=== PATIENT | female | born 1940 | race Caucasian/White ===

== ENCOUNTER 2019-09-15 08:11 | Outpatient (CLI) | payer MEDICARE, OTHER, SELFPAY ==
[2019-09-15 09:03] LABS: Hemoglobin A1C 6.1 % (<5.7)
[2019-09-15 09:08] LABS: Blood Urea Nitrogen 25 mg/dL (7-17); Calcium 9.2 mg/dL (8.4-10.2); Carbon Dioxide 22 mmol/L (22-30); Chloride 105 mmol/L (98-107); Estimated Glomerular Filt Rate > 60; Glucose 114 mg/dL (65-105); Potassium 4.4 mmol/L (3.4-5.0); Sodium 135 mmol/L (137-145)
== END 2019-09-15 08:12 | disposition home or self-care (01) ==
PROVIDERS: PCP Family Medicine; Visit Provider Physician Assistant
DX: E11.9 Type 2 diabetes mellitus without complications (principal)
CPT/HCPCS: 36415; 80048; 83036

== ENCOUNTER 2019-12-21 08:18 | Outpatient (CLI) | payer MEDICARE, OTHER, SELFPAY ==
--- NOTE | ~2019-12-21 | MR_ITS ---
EXAMINATION: MR brain IAC wo/w con EXAM DATE: 12/21/2019 10:38 INDICATION: Dizziness, off balance. Struck her head 5 years ago. TECHNIQUE: Multi-sequential, multiplanar MR images of the brain, brainstem, internal auditory canals were obtained without contrast. Whole brain sagittal T1, axial diffusion, gradient echo (T2*), T1, T 2, FLAIR sequences obtained. High resolution coronal 3-D FIESTA, coronal T1 FSE, axial T1 FSPGR of t he internal auditory canals. Patient was then injected with 16 cc Multihance contrast intravenously. Postcontrast axial and coronal T1 weighted whole brain, axial and coronal high resolution T1 IAC seq uences obtained. There is no prior study for comparison. FINDINGS: No evidence of mastoid or middle ear opacification. The 7th/8th cranial nerve complexes a re symmetric, normal in course and caliber. No cerebellopontine angle masses. Posterior fossa unrem arkable. There is minimal microangiopathy. There is no acute intraparenchymal hemorrhage. No evidence of intr aparenchymal brain mass lesion. No evidence of acute infarction. There is no mass effect or midline shift. The ventricles are normal in size. There are no extra-axial collections. There are no acut e calvarial fractures. Patient has had bilateral ocular lens surgery. Soft tissue is unremarkable. The visualized sinuses and mastoid air cells are well aerated. There are no areas of abnormal enhan cement on the postcontrast images. IMPRESSION: Minimal microangiopathy. Otherwise unremarkable exam. Reviewed, dictated and finalized at location A.
[2019-12-21 09:12] LABS: Hemoglobin A1C 5.6 % (<5.7)
[2019-12-21 09:19] LABS: Alanine Aminotransferase 21 U/L (4-35); Albumin Level 4.7 g/dL (3.5-5.1); Alkaline Phosphatase 66 U/L (38-126); Anion Gap 8 mmol/L (8-16); Aspartate Amino Transferase 28 U/L (14-36); Bilirubin,Total 0.7 mg/dL (0.2-1.3); Blood Urea Nitrogen 20 mg/dL (7-17); Calcium 9.3 mg/dL (8.4-10.2); Carbon Dioxide 26 mmol/L (22-30); Chloride 104 mmol/L (98-107); Estimated Glomerular Filt Rate > 60; Glucose 122 mg/dL (65-105); Potassium 4.3 mmol/L (3.4-5.0); Sodium 138 mmol/L (137-145)
[2019-12-21 09:44] LABS: Estimated Glomerular Filt Rate 60
== END 2019-12-21 08:19 | disposition home or self-care (01) ==
PROVIDERS: Physician Assistant; PCP Family Medicine; Visit Provider Physician Assistant
DX: R42 Dizziness and giddiness (principal); E11.9 Type 2 diabetes mellitus without complications
CPT/HCPCS: 36415; 70553; 80053; 83036; A9577

== ENCOUNTER 2019-12-27 08:14 | Emergency (ER) | payer MEDICARE, OTHER, SELFPAY ==
[2019-12-27 08:27] VITALS: BP 170/87; PULSE 91; RESP 16; TEMP 36.3; O2SAT 98
--- NOTE | 2019-12-27 08:27 | ED.GENADULT ---
HPI - General Adult General Chief complaint: Skin/Abscess/Foreign Body Stated complaint: itchy Time Seen by Provider: 12/27/19 08:29 Source: patient and RN notes reviewed Mode of arrival: ambulatory Limitations: no limitations History of Present Illness HPI narrative: 79-year-old female presents with complaints of diffused left side itching without a visible rash for the past 3 weeks. Decreased bathing per week, Benadryl 25-50mg T.I.D. last on 12/26/19 @22:30, Hydrocortisone cream, and Triamcinolone cream without relief. Denies new changes in personal hygiene products or laundry detergent. No new foods or medications. No swelling, burning, bleeding, or drainage. Denies fever, chills, headaches, weakness, fatigue, myalgia, facial swelling, or tongue swelling. Denies chest pain or dyspnea. The patient reports she have not been diagnosed with COVID-19. The patient reports she is not waiting for the results of a COVID-19 lab test. The patient reports she do not have fever, chills, weakness, or fatigue. The patient reports she do not have a new or worsening cough. The patient reports she do not have any rhinorrhea, congestion, sore throat, loss of taste, nausea, vomiting, abdominal pain, and diarrhea. Tolerating po intake well. Denies recent traveling. Denies concerns for COVID-19 or exposures been home with limited outdoor exposure except for essential household needs, work, and return home. At this time, patient is not suspected of having COVID-19. Some parts of this dictation were generated by voice recognition software and may contain typographical and/or grammatical inaccuracies. Related Data Home Medications Medication Instructions Recorded Confirmed simvastatin 20 mg tablet 20 mg PO DAILY 03/16/19 12/27/19 Allergies Allergy/AdvReac Type Severity Reaction Status Date / Time adhesive Allergy Unknown SKIN Verified 12/27/19 08:23 IRRITATION Sulfa (Sulfonamide Allergy Unknown Skin Verified 12/27/19 08:23 Antibiotics) Reaction Review of Systems Review of Systems: Narrative: CONSTITUTIONAL: Denies fever, chills, sweats. EYES: Denies visual changes, redness, discharge. ENT: Denies rhinorrhea, congestion, sore throat, otalgia. CARDIOVASCULAR: Denies chest pain, palpitations, edema. RESPIRATORY: Denies dyspnea, wheezing, cough. GASTROINTESTINAL: Denies abdominal pain, nausea, vomiting, diarrhea. GENITOURINARY: Denies dysuria, hematuria, abnormal discharge. SKIN: Complains of diffused left side itching without a visible rash. Denies drainage. MUSCULOSKELETAL: Denies acute back pain, joint pain, or myalgia. NEUROLOGIC: Denies numbness or focal weakness. PSYCHIATRIC: Denies anxiety or depression. All other systems reviewed & are unremarkable except as noted in HPI and below. FORMERLY [facility], [facility] Past Medical History Medical History (Updated 12/27/19 @ 09:03 by ALICIA Campso) Anxiety Cataracts, bilateral Duodenal ulcer Mixed hyperlipidemia Obesity, unspecified Post-menopausal Rectal polyp Skin cancer (melanoma) Type 2 diabetes mellitus without complication, without long-term current use of insulin Vertigo Surgical History Surgical History (Updated 12/27/19 @ 09:03 by ALIICA Campos) History of bladder repair surgery History of cholecystectomy History of lumpectomy RT breast History of shoulder surgery RT History of thyroidectomy History of total knee arthroplasty LT History of tubal ligation Family History Family History Mother Family history of Alzheimer's disease Father Family history of primary malignant neoplasm of liver Family history of hepatitis, Onset Age: 94 Social History Social History (Updated 12/27/19 @ 09:04 by ALICIA Campos) Smoking status: Former smoker Tobacco type: cigarettes Second hand tobacco smoke exposure: No Smoking end date: 04/06/84 Alcohol intake: current Subst
[2019-12-27 08:46] VITALS: BP 164/78
== END 2019-12-27 08:46 | disposition home or self-care (01) ==
PROVIDERS: Emergency Provider Nurse Practitioner Family; PCP Family Medicine
DX: L30.9 Dermatitis, unspecified (principal); Z87.891 Personal history of nicotine dependence; F41.9 Anxiety disorder, unspecified; E78.2 Mixed hyperlipidemia; E11.9 Type 2 diabetes mellitus without complications; Z85.820 Personal history of malignant melanoma of skin; E66.9 Obesity, unspecified; Z68.30 Body mass index [BMI] 30.0-30.9, adult; H26.9 Unspecified cataract; Z96.652 Presence of left artificial knee joint
CPT/HCPCS: 99213; G0463

== ENCOUNTER 2020-01-27 15:22 | Outpatient (CLI) | payer MEDICARE, OTHER, SELFPAY ==
[2020-01-27 15:49] LABS: Basophils Absolute Auto 0.1 K/mm3 (0.0-0.1); Basophils Percent Auto 0.7 % (0.2-1.2); Eosinophils Absolute Auto 0.2 K/mm3 (0-0.3); Eosinophils Percent Auto 2.3 % (0-4.4); Hematocrit 42.9 % (37.0-47.0); Hemoglobin 14.1 g/dL (12.0-15.0); Immature Granulocyte Absolute 0.06 K/mm3 (0.00-0.031); Immature Granulocyte Percent A 0.6 % (0-0.5); Lymphocytes Absolute Auto 3.49 K/mm3 (0.9-3.2); Lymphocytes Percent Auto 35.5 % (18.3-44.2); Mean Corpuscular HGB Conc 32.9 g/dl (32-36); Mean Corpuscular Hemoglobin 32.3 pg (26-34); Mean Corpuscular Volume 98.2 fl (80-100); Mean Platelet Volume 9.5 fl (7.4-10.4); Monocytes Absolute Auto 0.6 K/mm3 (0.1-0.6); Monocytes Percent Auto 5.6 % (2.6-8.5); Neutrophils Absolute Auto 5.4 K/mm3 (1.3-6.7); Neutrophils Percent Auto 55.3 % (45.5-73.1); Platelet Count Result 239 k/mm3 (150-375); Red Blood Count 4.37 M/mm3 (4.2-5.4); Red Cell Distribution Width 13.8 % (11.5-14.5); White Blood Count 9.8 K/mm3 (4.5-10.0)
[2020-01-27 16:01] LABS: Alanine Aminotransferase 18 U/L (4-35); Albumin Level 4.3 g/dL (3.5-5.1); Alkaline Phosphatase 62 U/L (38-126); Anion Gap 9 mmol/L (8-16); Aspartate Amino Transferase 30 U/L (14-36); Bilirubin,Total 0.5 mg/dL (0.2-1.3); Blood Urea Nitrogen 23 mg/dL (7-17); Calcium 9.3 mg/dL (8.4-10.2); Carbon Dioxide 26 mmol/L (22-30); Chloride 105 mmol/L (98-107); Estimated Glomerular Filt Rate > 60; Glucose 138 mg/dL (65-105); Potassium 4.5 mmol/L (3.4-5.0); Sodium 140 mmol/L (137-145)
== END 2020-01-27 15:23 | disposition home or self-care (01) ==
LOC: ANHLAB 15:25
PROVIDERS: PCP Family Medicine; Visit Provider Family Medicine
DX: L29.9 Pruritus, unspecified (principal)
CPT/HCPCS: 36415; 80053; 85025

== ENCOUNTER 2020-05-16 09:50 | Outpatient (CLI) | payer MEDICARE, OTHER, SELFPAY ==
[2020-05-16 10:45] LABS: Basophils Absolute Auto 0.1 K/mm3 (0.0-0.1); Basophils Percent Auto 0.6 % (0.2-1.2); Eosinophils Absolute Auto 0.2 K/mm3 (0-0.3); Eosinophils Percent Auto 2.3 % (0-4.4); Hematocrit 39.2 % (37.0-47.0); Hemoglobin 13.1 g/dL (12.0-15.0); Immature Granulocyte Absolute 0.03 K/mm3 (0.00-0.031); Immature Granulocyte Percent A 0.3 % (0-0.5); Lymphocytes Percent Auto 48.3 % (18.3-44.2); Mean Corpuscular HGB Conc 33.4 g/dl (32-36); Mean Corpuscular Volume 92.9 fl (80-100); Mean Platelet Volume 9.9 fl (7.4-10.4); Monocytes Absolute Auto 0.7 K/mm3 (0.1-0.6); Monocytes Percent Auto 6.6 % (2.6-8.5); Neutrophils Absolute Auto 4.3 K/mm3 (1.3-6.7); Neutrophils Percent Auto 41.9 % (45.5-73.1); Platelet Count Result 214 k/mm3 (150-375); Red Blood Count 4.22 M/mm3 (4.2-5.4); White Blood Count 10.1 K/mm3 (4.5-10.0)
[2020-05-16 10:46] LABS: Hemoglobin A1C 5.9 % (<5.7)
[2020-05-16 10:49] LABS: Alanine Aminotransferase 18 U/L (4-35); Albumin Level 4.4 g/dL (3.5-5.1); Alkaline Phosphatase 54 U/L (38-126); Anion Gap 5 mmol/L (8-16); Aspartate Amino Transferase 27 U/L (14-36); Bilirubin,Total 0.4 mg/dL (0.2-1.3); Blood Urea Nitrogen 21 mg/dL (7-17); Calcium 9.2 mg/dL (8.4-10.2); Carbon Dioxide 31 mmol/L (22-30); Chloride 106 mmol/L (98-107); Cholesterol 210 mg/dL (0-200); Estimated Glomerular Filt Rate > 60; Glucose 111 mg/dL (65-105); HDL Direct 63 mg/dL; Potassium 4.4 mmol/L (3.4-5.0); Sodium 142 mmol/L (137-145); Triglycerides 212 mg/dL (<150)
[2020-05-16 11:00] LABS: LDL Cholesterol Direct 93 mg/dL
[2020-05-16 11:09] LABS: Creatinine Urine 95.9 mg/dL
[2020-05-16 11:23] LABS: Microalbumin Urine Random < 6.0 mg/L (0-16.7)
[2020-05-16 11:24] LABS: MALB Creatinine Ratio < 6.3 mg/g (0-30); Vitamin D 25 Hydroxy 18.4 ng/mL
== END 2020-05-16 09:51 | disposition home or self-care (01) ==
PROVIDERS: PCP Internal Medicine; Visit Provider Internal Medicine
DX: E11.9 Type 2 diabetes mellitus without complications (principal); E55.9 Vitamin D deficiency, unspecified; E78.2 Mixed hyperlipidemia; Z79.899 Other long term (current) drug therapy; E66.09 Other obesity due to excess calories; Z68.34 Body mass index [BMI] 34.0-34.9, adult
CPT/HCPCS: 36415; 80053; 80061; 82043; 82306; 83036; 84443; 85025

== ENCOUNTER 2020-05-31 16:49 | Outpatient (CLI) | payer MEDICARE, OTHER, SELFPAY ==
--- NOTE | ~2020-05-31 | MM_ITS ---
EXAMINATION: MM screening marie BI w romulo HISTORY: Screening mammogram TECHNIQUE: Craniocaudal and mediolateral oblique 3-D tomosynthesis images were obtained and synthetic 2-D images were generated. CAD analysis was submitted and interpreted. COMPARISON: 08/18/2016, 10/14/2102, 05/22/2010 BREAST PARENCHYMAL COMPOSITION: The breasts are heterogeneously dense, which may obscure small masses . FINDINGS: Scattered benign-appearing calcifications are present. There is no evidence of suspicious m ass, calcification, or architectural distortion to suggest malignancy in either breast. There has bee n no suspicious interval change. IMPRESSION: 1. No mammographic evidence of malignancy. 2. Recommend routine screening mammography in one year. BI-RADS Category 2: Benign finding(s). Reviewed, dictated and finalized at location A. ENTRY
== END 2020-05-31 16:50 | disposition home or self-care (01) ==
LOC: ANHIMG 16:50
PROVIDERS: PCP Internal Medicine; Visit Provider Internal Medicine
DX: Z12.31 Encounter for screening mammogram for malignant neoplasm of breast (principal)
CPT/HCPCS: 77063; 77067

== ENCOUNTER → 2020-06-11 11:21 | Outpatient (CLI) | payer MEDICARE, OTHER, SELFPAY ==
[2020-06-12 22:47] LABS: SARS-CoV-2 RNA PCR Negative
== END ==
PROVIDERS: PCP Internal Medicine; Visit Provider Internal Medicine
DX: R68.89 Other general symptoms and signs (principal); Z20.822 Contact with and (suspected) exposure to COVID-19
CPT/HCPCS: C9803; U0003; U0005

== ENCOUNTER → 2020-07-07 05:24 | Outpatient (CLI) | payer MEDICARE, OTHER, SELFPAY ==
[2020-07-07 19:34] LABS: SARS-CoV-2 RNA PCR Negative
== END ==
PROVIDERS: PCP Internal Medicine; Visit Provider Internal Medicine Gastroenterology
DX: Z01.812 Encounter for preprocedural laboratory examination (principal); Z20.822 Contact with and (suspected) exposure to COVID-19
CPT/HCPCS: C9803; U0003; U0005

== ENCOUNTER 2020-07-11 01:30 | Day surgery (SDC) | payer MEDICARE, OTHER, SELFPAY ==
[2020-07-04 10:01] VITALS: BMI 31.5
[2020-07-11 08:50] VITALS: BP 147/78; PULSE 100; RESP 20; TEMP 37.1; O2SAT 100
[2020-07-11] MEDS: LACTATED RINGERS 1,000 ML 150 ML IV CONT (09:05)
[2020-07-11 09:06] LABS: Glucose Point of Care 121 (65-105)
--- NOTE | 2020-07-11 09:27 | WPDANESEPPF ---
Anes - Initial Pre Proc Eval Procedure: Operation Date: 07/11/20 10:00 Proposed Procedures p Screening Colonoscopy - Robert Crisostomo MD Date/Time: 07/11/20 09:27 Surgeon: Robert Crisostomo MD Pre Op Diagnosis: Neoplasm Screening Patient Data Age: 80 Gender: F Height: 5 ft 3.5 in Weight: 82 kg Last Vital Signs Temp 98.7 F 07/11/20 08:50 Pulse 100 07/11/20 08:50 Resp 20 07/11/20 08:50 BP 147/78 H 07/11/20 08:50 Pulse Ox 100 07/11/20 08:50 Allergies Allergy/AdvReac Type Severity Reaction Status Date / Time adhesive Allergy Mild SKIN Verified 07/04/20 10:02 IRRITATION Sulfa (Sulfonamide Allergy Mild Skin Verified 07/04/20 10:02 Antibiotics) Reaction Home Medications Medication Instructions Recorded Confirmed Type cholecalciferol (vitamin D3) 1,250 50,000 unit PO WEEKLY #14 cap 05/17/20 07/04/20 Rx mcg (50,000 unit) capsule omeprazole 20 mg capsule,delayed 20 mg PO DAILY #90 cap 05/23/20 07/04/20 Rx release lisinopril 10 mg tablet 10 mg PO DAILY #90 tablet 06/01/20 07/04/20 Rx metformin 500 mg tablet,extended 1,000 mg PO DAILY #180 tablet 06/01/20 07/04/20 Rx release 24 hr sodium,potassium,mag sulfates 17.5 See Rx Instructions PO .COMPLEX 06/07/20 Rx gram-3.13 gram-1.6 gram oral soln #354 ml acetaminophen [Tylenol Arthritis 650 mg PO DAILY PRN 07/04/20 07/04/20 History Pain] cetirizine 10 mg PO DAILY 07/04/20 07/04/20 History rosuvastatin [Crestor] 5 mg PO HS 07/04/20 07/04/20 History Laboratory Tests 07/11/20 09:03 POC Capillary Glucose 121 mg/dl H mg/dl (65-105) Patient hx anesthesia problems: none Family hx anesthesia problems: none PMFSH Past Medical History Medical History Acute arthritis Anxiety Cataracts, bilateral Duodenal ulcer High cholesterol Mixed hyperlipidemia Obesity, unspecified Painful joint Post-menopausal Rectal polyp Skin cancer (melanoma) Type 2 diabetes mellitus without complication, without long-term current use of insulin Vertigo Surgical History Surgical History History of bladder repair surgery History of cholecystectomy History of lumpectomy RT breast History of shoulder surgery RT History of thyroidectomy History of total knee arthroplasty LT History of tubal ligation Family History Family History Mother Family history of Alzheimer's disease Father Family history of primary malignant neoplasm of liver Family history of hepatitis, Onset Age: 94 Social History Social History Smoking status: Former smoker Tobacco type: cigarettes Second hand tobacco smoke exposure: No Smoking end date: 04/06/84 Alcohol intake: current Substance use: never Substance use type: does not use Living arrangements: with family Gender identity (if verbalized by the patient): Female Spiritual care concerns: No Anes - Eval Final PreProcedure Day of Procedure 07/11/20 09:27 Patient weight: overweight Heart: regular rate and rhythm Lungs: clear to auscultation Airway: Mallampati scale class II Neurological: alert and oriented Last oral intake: >/= 8 hours ASA classification: III Emergent: no Anesthetic plan: proceed Anesthesia type and monitoring: general GIVS and standard monitoring Informed Consent: The patient's anesthetic plan and its attendant risks and benefits were discussed with the patient/family/POA. Questions were solicited and answers provided to the satisfaction of the patient/family/POA.
--- NOTE | 2020-07-11 09:52 | PM.HPGS ---
History of Present Illness History of Present Illness Consent: Risks, benefits, and alternatives have been discussed and questions answered. Patient agrees to proceed with procedure. Chief complaint: Neoplasm Screening Narrative: Jerica Walker is a 80 year old female with colon polyp in 2013 Review of Systems Constitutional: Constitutional: Denies headache(s) and Denies weakness Eyes: Eyes: Denies blurry vision ENT: Reports Normal hearing present, Denies headache(s) and Denies neck pain Cardiovascular: Cardiovascular: Denies chest pain and Denies dyspnea Respiratory: Respiratory: Denies dyspnea Gastrointestinal: Gastrointestinal: Reports no additional gastrointestinal complaints Genitourinary: Genitourinary: Denies dysuria Musculoskeletal: Musculoskeletal: Denies neck pain Integumentary/Breasts: Skin/Breast: Denies dry skin Neurologic: Reports Normal hearing present, Denies headache(s) and Denies weakness Psychiatric: Psychiatric: Denies anxiety Endocrine: Endocrine: Denies change in body appearance Hematologic/Lymphatic: Hematologic/Lymphatic: Denies easy bleeding Allergic/Immunologic: Allergic/Immunologic: Denies urticaria PMFSH Past Medical History Medical History Acute arthritis Anxiety Cataracts, bilateral Duodenal ulcer High cholesterol Mixed hyperlipidemia Obesity, unspecified Painful joint Post-menopausal Rectal polyp Skin cancer (melanoma) Type 2 diabetes mellitus without complication, without long-term current use of insulin Vertigo Surgical History Surgical History History of bladder repair surgery History of cholecystectomy History of lumpectomy RT breast History of shoulder surgery RT History of thyroidectomy History of total knee arthroplasty LT History of tubal ligation Family History Family History Mother Family history of Alzheimer's disease Father Family history of primary malignant neoplasm of liver Family history of hepatitis, Onset Age: 94 Social History Social History Smoking status: Former smoker Tobacco type: cigarettes Second hand tobacco smoke exposure: No Smoking end date: 04/06/84 Alcohol intake: current Substance use: never Substance use type: does not use Living arrangements: with family Gender identity (if verbalized by the patient): Female Spiritual care concerns: No Meds Home Medications and Allergies Home Medications Medication Instructions Recorded Confirmed Type cholecalciferol (vitamin D3) 1,250 50,000 unit PO WEEKLY #14 cap 05/17/20 07/04/20 Rx mcg (50,000 unit) capsule omeprazole 20 mg capsule,delayed 20 mg PO DAILY #90 cap 05/23/20 07/04/20 Rx release lisinopril 10 mg tablet 10 mg PO DAILY #90 tablet 06/01/20 07/04/20 Rx metformin 500 mg tablet,extended 1,000 mg PO DAILY #180 tablet 06/01/20 07/04/20 Rx release 24 hr sodium,potassium,mag sulfates 17.5 See Rx Instructions PO .COMPLEX 06/07/20 Rx gram-3.13 gram-1.6 gram oral soln #354 ml acetaminophen [Tylenol Arthritis 650 mg PO DAILY PRN 07/04/20 07/04/20 History Pain] cetirizine 10 mg PO DAILY 07/04/20 07/04/20 History rosuvastatin [Crestor] 5 mg PO HS 07/04/20 07/04/20 History Allergies Allergy/AdvReac Type Severity Reaction Status Date / Time adhesive Allergy Mild SKIN Verified 07/04/20 10:02 IRRITATION Sulfa (Sulfonamide Allergy Mild Skin Verified 07/04/20 10:02 Antibiotics) Reaction Vital Signs Vital Signs - 24 hr 07/11/20 08:50 Temperature 98.7 F Pulse Rate 100 Respiratory Rate 20 Blood Pressure 147/78 H Pulse Oximetry 100 Exam Const: General: comfortable and no acute distress HENMT: General nose exam: Normal nares present Eyes: General: appearance normal, both
[2020-07-11 10:17] VITALS: BP 151/70; PULSE 77; RESP 28; O2SAT 94
[2020-07-11 10:27] VITALS: BP 152/68; PULSE 74; RESP 21; O2SAT 95
[2020-07-11 10:37] VITALS: BP 153/71; PULSE 72; RESP 20; O2SAT 96
== END 2020-07-11 10:40 | disposition home or self-care (01) ==
PROVIDERS: PCP Internal Medicine; Visit Provider Internal Medicine Gastroenterology
PROC: 0DJD8ZZ Inspection of Lower Intestinal Tract, Via Natural or Artificial Opening Endoscopic (ICD-10-PCS; CPT 45378; principal; 2020-07-11 10:00)
DX: Z12.11 Encounter for screening for malignant neoplasm of colon (principal); K57.30 Diverticulosis of large intestine without perforation or abscess without bleeding; K64.8 Other hemorrhoids; Z86.010 Personal history of colon polyps; E11.9 Type 2 diabetes mellitus without complications; E78.2 Mixed hyperlipidemia; F41.9 Anxiety disorder, unspecified; E66.9 Obesity, unspecified; Z68.31 Body mass index [BMI] 31.0-31.9, adult; H26.9 Unspecified cataract; Z87.891 Personal history of nicotine dependence; Z79.84 Long term (current) use of oral hypoglycemic drugs
CPT/HCPCS: G0105; J2704; J7120

== ENCOUNTER 2020-08-30 08:07 | Outpatient (CLI) | payer MEDICARE, OTHER, SELFPAY ==
[2020-08-30 08:38] LABS: Alanine Aminotransferase 15 U/L (4-35); Albumin Level 4.4 g/dL (3.5-5.1); Alkaline Phosphatase 47 U/L (38-126); Anion Gap 9 mmol/L (8-16); Aspartate Amino Transferase 26 U/L (14-36); Bilirubin,Total 0.7 mg/dL (0.2-1.3); Blood Urea Nitrogen 16 mg/dL (7-17); Calcium 9.4 mg/dL (8.4-10.2); Carbon Dioxide 25 mmol/L (22-30); Chloride 108 mmol/L (98-107); Cholesterol 183 mg/dL (0-200); Estimated Glomerular Filt Rate > 60; Glucose 113 mg/dL (65-105); HDL Direct 74 mg/dL; Potassium 4.3 mmol/L (3.4-5.0); Sodium 142 mmol/L (137-145); Triglycerides 169 mg/dL (<150)
[2020-08-30 09:02] LABS: Creatinine Urine 108.5 mg/dL
[2020-08-30 09:07] LABS: MALB Creatinine Ratio 6.6 mg/g (0-30); Microalbumin Urine Random 7.2 mg/L (0-16.7)
[2020-08-30 11:20] LABS: LDL Cholesterol Direct 61 mg/dL
== END 2020-08-30 08:08 | disposition home or self-care (01) ==
PROVIDERS: PCP Internal Medicine; Visit Provider Internal Medicine
DX: E55.9 Vitamin D deficiency, unspecified (principal); E78.2 Mixed hyperlipidemia; I10 Essential (primary) hypertension; E11.9 Type 2 diabetes mellitus without complications
CPT/HCPCS: 36415; 80053; 80061; 82043; 83036

== ENCOUNTER 2020-09-21 11:55 | Outpatient (CLI) | payer MEDICARE, OTHER, SELFPAY ==
--- NOTE | 2020-09-21 12:43 | ECG_ITS ---
Measurements Intervals [place] Rate: 83 P: 52 KS: 147 QRS: -5 QRSD: 87 T: 53 QT: 351 QTc: 413 Interpretive Statements SINUS RHYTHM BORDERLINE R WAVE PROGRESSION, ANTERIOR LEADS BASELINE ARTIFACT- I, II, III, AVR, AVL, AVF BORDERLINE ECG Electronically Signed On 09-21-2020 13:20:18 CDT by Osbaldo Francisco D.O.
[2020-09-21 13:06] LABS: Hematocrit 39.8 % (37.0-47.0); Hemoglobin 13.4 g/dL (12.0-15.0); Mean Corpuscular HGB Conc 33.7 g/dl (32-36); Mean Corpuscular Hemoglobin 31.3 pg (26-34); Red Blood Count 4.28 M/mm3 (4.2-5.4); Red Cell Distribution Width 14.5 % (11.5-14.5); White Blood Count 13.8 K/mm3 (4.5-10.0)
[2020-09-21 13:07] LABS: Basophils Absolute Auto 0.1 K/mm3 (0.0-0.1); Basophils Percent Auto 0.4 % (0.2-1.2); Eosinophils Absolute Auto 0.2 K/mm3 (0-0.3); Eosinophils Percent Auto 1.7 % (0-4.4); Immature Granulocyte Absolute 0.06 K/mm3 (0.00-0.031); Immature Granulocyte Percent A 0.4 % (0-0.5); Lymphocytes Absolute Auto 6.58 K/mm3 (0.9-3.2); Lymphocytes Percent Auto 47.7 % (18.3-44.2); Mean Platelet Volume 9.2 fl (7.4-10.4); Monocytes Absolute Auto 0.8 K/mm3 (0.1-0.6); Monocytes Percent Auto 6.1 % (2.6-8.5); Neutrophils Percent Auto 43.7 % (45.5-73.1); Platelet Count Result 217 k/mm3 (150-375)
[2020-09-21 13:21] LABS: Urine Cotinine NEGATIVE
[2020-09-21 13:43] LABS: Atypical Lymphocytes Present; Platelet Estimate Adequate (Adequate)
== END 2020-09-21 11:56 | disposition home or self-care (01) ==
LOC: ANHSURGERY 11:57
PROVIDERS: PCP Internal Medicine; Visit Provider Orthopaedic Surgery
DX: M17.11 Unilateral primary osteoarthritis, right knee (principal); Z01.818 Encounter for other preprocedural examination; R94.31 Abnormal electrocardiogram [ECG] [EKG]
CPT/HCPCS: 80307; 85025; 87070; 93005

== ENCOUNTER 2020-10-04 12:20 | Outpatient (CLI) | payer MEDICARE, OTHER, SELFPAY ==
[2020-10-04 13:02] LABS: Basophils Absolute Auto 0.1 K/mm3 (0.0-0.1); Basophils Percent Auto 0.6 % (0.2-1.2); Eosinophils Absolute Auto 0.2 K/mm3 (0-0.3); Eosinophils Percent Auto 1.6 % (0-4.4); Hematocrit 39.6 % (37.0-47.0); Hemoglobin 13.1 g/dL (12.0-15.0); Immature Granulocyte Absolute 0.08 K/mm3 (0.00-0.031); Immature Granulocyte Percent A 0.6 % (0-0.5); Lymphocytes Absolute Auto 6.12 K/mm3 (0.9-3.2); Lymphocytes Percent Auto 45.9 % (18.3-44.2); Mean Corpuscular HGB Conc 33.1 g/dl (32-36); Mean Corpuscular Hemoglobin 30.8 pg (26-34); Mean Corpuscular Volume 93.2 fl (80-100); Mean Platelet Volume 9.2 fl (7.4-10.4); Monocytes Absolute Auto 0.9 K/mm3 (0.1-0.6); Neutrophils Absolute Auto 5.9 K/mm3 (1.3-6.7); Neutrophils Percent Auto 44.3 % (45.5-73.1); Platelet Count Result 223 k/mm3 (150-375); Red Blood Count 4.25 M/mm3 (4.2-5.4); Red Cell Distribution Width 14.6 % (11.5-14.5); White Blood Count 13.3 K/mm3 (4.5-10.0)
[2020-10-04 13:19] LABS: Alanine Aminotransferase 19 U/L (4-35); Albumin Level 4.7 g/dL (3.5-5.1); Alkaline Phosphatase 58 U/L (38-126); Anion Gap 8 mmol/L (8-16); Aspartate Amino Transferase 29 U/L (14-36); Bilirubin,Total 0.5 mg/dL (0.2-1.3); Blood Urea Nitrogen 19 mg/dL (7-17); Calcium 9.9 mg/dL (8.4-10.2); Carbon Dioxide 27 mmol/L (22-30); Chloride 106 mmol/L (98-107); Estimated Glomerular Filt Rate > 60; Glucose 109 mg/dL (65-105); Lactate Dehydrogenase 419 U/L (313-618); Potassium 4.7 mmol/L (3.4-5.0); Sodium 141 mmol/L (137-145)
== END 2020-10-04 12:21 | disposition home or self-care (01) ==
PROVIDERS: PCP Internal Medicine; Visit Provider Internal Medicine Medical Oncology
DX: D72.820 Lymphocytosis (symptomatic) (principal)
CPT/HCPCS: 36415; 80053; 83615; 85025

== ENCOUNTER 2020-10-09 09:30 | Outpatient (CLI) | payer MEDICARE, OTHER, SELFPAY | END 2020-10-09 09:31 | disposition home or self-care (01) | PROVIDERS: PCP Internal Medicine; Visit Provider Internal Medicine Medical Oncology | DX: D72.820 Lymphocytosis (symptomatic) (principal) | CPT/HCPCS: 88184; 88185 ==

== ENCOUNTER 2020-10-11 14:42 | Observation (INO) | payer MEDICARE, OTHER, SELFPAY ==
[2020-09-21 12:05] VITALS: BMI 34.0
[2020-09-21 12:41] VITALS: BP 165/74; PULSE 86; RESP 16; TEMP 37.2; O2SAT 96
--- NOTE | 2020-10-03 12:45 | PM.IMHP ---
H&P: HPI History of Present Illness Date/Time: 10/03/20 12:45 80-year-old female patient of who presents today for a right total knee arthroplasty. She had her left knee replaced in 2019 which is doing very well. Her right knee continues to be very bothersome for her on a daily basis. She had a cortisone injection in April of this year which gave her no real improvement. She is a very active healthy 80-year-old female. She still travels quite a bit and lives on her own. The pain in the knee is bothering her on a daily basis, at times it keeps her from activities as well. She has decided she would like to proceed with total knee arthroplasty rather continue nonsurgical treatment. <KRISTINA Mattson - Last Filed: 10/03/20 12:51> Chief Complaint: right knee DJD <KRISTINA Mattson - Last Filed: 10/03/20 12:51> Review of Systems Review of Systems: All systems reviewed & are unremarkable except as noted in HPI and below <KRISTINA Mattson - Last Filed: 10/03/20 12:51> [facility] Past Medical History Medical History: Medical History Acute arthritis Anxiety Cataracts, bilateral Colon polyp Duodenal ulcer High cholesterol Mixed hyperlipidemia Obesity, unspecified Painful joint Post-menopausal Rectal polyp Skin cancer (melanoma) Type 2 diabetes mellitus without complication, without long-term current use of insulin Vertigo <KRISTINA Mattson - Last Filed: 10/03/20 12:51> Surgical History Surgical History: Surgical History History of bladder repair surgery History of cholecystectomy History of lumpectomy RT breast History of shoulder surgery RT History of thyroidectomy History of total knee arthroplasty LT History of tubal ligation <KRISTINA Mattson - Last Filed: 10/03/20 12:51> Family History Family History: Family History Mother Family history of Alzheimer's disease Father Family history of primary malignant neoplasm of liver Family history of hepatitis, Onset Age: 94 <KRISTINA Mattson - Last Filed: 10/03/20 12:51> Social History Social History: Social History Years smoked: 12 Smoking status: Former smoker Tobacco type: cigarettes Second hand tobacco smoke exposure: No Smoking end date: 04/06/84 Additional smoking assessment comments: DENIES ANY FORM OF TOBACCO USE Alcohol intake: current Drinks per week: 2 Substance use: never Substance use type: does not use Living arrangements: with family Gender identity (if verbalized by the patient): Female Spiritual care concerns: No <KRISTINA Mattson - Last Filed: 10/03/20 12:51> Meds Home Medications and Allergies Home medications: Home Medications Medication Instructions Recorded Confirmed Type omeprazole 20 mg capsule,delayed 20 mg PO DAILY #90 cap 05/23/20 10/10/20 Rx release acetaminophen [Tylenol Arthritis 650 mg PO DAILY PRN 07/04/20 10/10/20 History Pain] amlodipine 5 mg tablet 5 mg PO DAILY #30 tablet 09/06/20 10/10/20 Rx rosuvastatin 10 mg tablet 10 mg PO QAM tablet 09/06/20 10/10/20 History cetirizine [Zyrtec] 10 mg PO DAILY PRN 09/21/20 10/10/20 History metformin 1,000 mg PO QPM 09/21/20 10/10/20 History <KRISTINA Mattson - Last Filed: 10/03/20 12:51> Allergies/Adverse reactions: Allergies Allergy/AdvReac Type Severity Reaction Status Date / Time adhesive Allergy Mild SKIN Verified 10/10/20 06:18 IRRITATION Sulfa (Sulfonamide Allergy Mild Skin Verified 10/10/20 06:18 Antibiotics) Reaction <KRISTINA Mattson - Last Filed: 10/03/20 12:51> Exam Narrative: Exam Narrative: 80-year-old female very alert pleasant. She is 5 ft 2 and 185 lb. Right knee has mild effusion. Range of motion is from 10-135 deg
--- NOTE | 2020-10-09 12:42 | WPDANESEPPF ---
Anes - Initial Pre Proc Eval Procedure: Operation Date: 10/10/20 07:30 Proposed Procedures p Right Total Knee Arthroplasty - Giovanny Basilio MD Date/Time: 10/09/20 12:42 Surgeon: Giovanny Basilio MD Pre Op Diagnosis: Right knee oa Patient Data Age: 80 Gender: F Height: 1.57 m Weight: 84.5 kg Last Vital Signs Temp 37.2 C 09/21/20 12:41 Pulse 86 09/21/20 12:41 Resp 16 09/21/20 12:41 BP 165/74 H 09/21/20 12:41 Pulse Ox 96 09/21/20 12:41 Allergies Allergy/AdvReac Type Severity Reaction Status Date / Time adhesive Allergy Mild SKIN Verified 10/10/20 06:18 IRRITATION Sulfa (Sulfonamide Allergy Mild Skin Verified 10/10/20 06:18 Antibiotics) Reaction Home Medications Medication Instructions Recorded Confirmed Type omeprazole 20 mg capsule,delayed 20 mg PO DAILY #90 cap 05/23/20 10/10/20 Rx release acetaminophen [Tylenol Arthritis 650 mg PO DAILY PRN 07/04/20 10/10/20 History Pain] amlodipine 5 mg tablet 5 mg PO DAILY #30 tablet 09/06/20 10/10/20 Rx rosuvastatin 10 mg tablet 10 mg PO QAM tablet 09/06/20 10/10/20 History cetirizine [Zyrtec] 10 mg PO DAILY PRN 09/21/20 10/10/20 History metformin 1,000 mg PO QPM 09/21/20 10/10/20 History Patient hx anesthesia problems: none Family hx anesthesia problems: none PMFSH Past Medical History Medical History Acute arthritis Anxiety Cataracts, bilateral Colon polyp Duodenal ulcer High cholesterol Mixed hyperlipidemia Obesity, unspecified Painful joint Post-menopausal Rectal polyp Skin cancer (melanoma) Type 2 diabetes mellitus without complication, without long-term current use of insulin Vertigo Surgical History Surgical History History of bladder repair surgery History of cholecystectomy History of lumpectomy RT breast History of shoulder surgery RT History of thyroidectomy History of total knee arthroplasty LT History of tubal ligation Family History Family History Mother Family history of Alzheimer's disease Father Family history of primary malignant neoplasm of liver Family history of hepatitis, Onset Age: 94 Social History Social History Years smoked: 12 Smoking status: Former smoker Tobacco type: cigarettes Second hand tobacco smoke exposure: No Smoking end date: 04/06/84 Additional smoking assessment comments: DENIES ANY FORM OF TOBACCO USE Alcohol intake: current Drinks per week: 2 Substance use: never Substance use type: does not use Living arrangements: with family Gender identity (if verbalized by the patient): Female Spiritual care concerns: No Anes - Eval Final PreProcedure Day of Procedure 10/09/20 12:42 Patient weight: obese Heart: regular rate and rhythm Lungs: clear to auscultation and normal air movement Airway: Mallampati scale class III Neurological: alert and oriented Last oral intake: >/= 8 hours ASA classification: III Emergent: no Anesthetic plan: proceed Anesthesia type and monitoring: general ETT and standard monitoring Informed Consent: The patient's anesthetic plan and its attendant risks and benefits were discussed with the patient/family/POA. Questions were solicited and answers provided to the satisfaction of the patient/family/POA.
[2020-10-10] VITALS (15 sets, daily range): BP systolic 125–175; BP diastolic 59–79; PULSE 78–97; RESP 12–24; TEMP 36–36.8; O2SAT 92–98
[2020-10-10] MEDS: ACETAMINOPHEN 500 MG TABLET 1000 MG PO ×3 (06:36→18:48)
[2020-10-10] MEDS: LACTATED RINGERS 1,000 ML 30 ML IV CONT ×2 (06:37→11:08)
[2020-10-10 06:49] LABS: Glucose Point of Care 122 mg/dl (65-105)
[2020-10-10] MEDS: TRANEXAMIC ACID 1,000MG/ISO100 1,000 MG/100 ML BAG 200 MG IVPB (07:07)
--- NOTE | 2020-10-10 07:18 | WPDHPUPDATE1 ---
History and Physical Update Update Date/Time: 10/10/20 07:18 History and Physical has been reviewed, including an updated exam of the patient. There are NO changes in the patient's condition. Risks, benefits, and alternatives have been discussed and questions answered. Patient agrees to proceed with procedure.
[2020-10-10] MEDS: ceFAZolin 2 GM/D5W 50 ML 2 GM/50 ML BAG IVPB (07:35)
[2020-10-10] MEDS: ceFAZolin SODIUM 1 GM VIAL 3 GM IRRIGATION (08:25)
[2020-10-10] MEDS: GENTAMICIN BONE CEMENT REFOBACIN 1 EACH TOPICAL (09:27)
[2020-10-10] MEDS: ceFAZolin SODIUM 1 GM VIAL IV PUSH (09:59)
--- NOTE | 2020-10-10 11:18 | W.PM.PROC2 ---
Procedure Note - Detailed Date of Procedure 10/10/20 Pre-op Diagnosis Right knee oa Post-op Diagnosis same Procedure Performed Right total knee arthroplasty Surgeon Giovanny Basilio MD Senior Net C Developer Diana Mendez Anesthesia general Indications pain [id number] arthritis right Findings same Description of Procedure patient was brought to the operating room and general anesthesia was administered. The right knee was prepped draped usual fashion. She received 2 g of Ancef weight based vancomycin 1 g of tranexamic acid preoperatively. Limb was exsanguinated tourniquet elevated to 300 mmHg. An 7 in longitudinal midline incision was used and a vastus medialis splitting approach was utilized split in the vastus medialis at the superior pole patella. The articular cartilage on the patella was intact minimal marginal spurring. A limited lateral facetectomy was performed and we elected to treat the patella with non resurfacing as it had normal contour. Suprapatellar and infrapatellar fat pads were excised Ancef synovectomy carried out. A guide dave was inserted down the femoral canal after aspiration of canal contents use jesusita valgus cutting bushing 9 mm of bone removed the distal femur. Next the tibial plateau was cut making a skim cut off the low point of the medial tibial plateau. Meniscal remnants were excised PCL was recessed. Flexion gap was 7 mm medial Ced[place] mm laterally this point. The femoral sizing set at 4? of external rotation which matched Whitesides 9 appropriately. The femur was cut to a size 625. The trial showed that it was just a mm too wide at this point and we had room anteriorly. As we trialed and the knee was too tight to accept an 10 mm CR insert at 90? of flexion. He was there than additional 2 mm of bone would need to be removed from the tibial plateau which was performed. The tibia was then sized to a size 67 rotation aligned with the medial 3rd of the tubercle and set parallel to the anterior tibial plateau and referenced off the 2nd metatarsal. This was punched. On trialing, with a 10 insert we had appropriate stability at 90? then the 11 was tight that 90?. He lacks about 5? of extension O ever. There was a mm of medial play no lateral plate. An additional 2 mm of bone removed the distal femur and the size 60 cutting block was applied the distal femur the anterior Cut and chamfer cuts were revised. the 60 trial fit nicely. Residual posterior femoral condylar bone was removed. On trialing the knee came out to just full extension with a negative bounce with a 10 insert 1-2 mm of medial opening 1 mm laterally. Appropriate stability at 90?. Patellar tracking was perfect Into deep flexion. Step drill was used to make multiple perforations in the tibial plateau and distal posterior femur the bony surfaces thoroughly irrigated and dried. Using Biomet methylmethacrylate 1 with gentamicin powder the cement was mixed immediately applied the tibial component then the femoral component applied to the tibia pressurized and the tibial component fully seated. Cement applied to the femur the femoral component fully seated the knee brought into extension with an 11 mm 5 and 1 inserted pressurization. Tourniquet was released at approximately 100 minutes. After cement hardening excess cement was sought for removed and hemostasis was achieved. We did trialed the 11 insert and a was too tight both in extension and flexion. The 10 was appropriate same stability parameters as discussed above. The real [address] locked with a locking pin. Local anesthetic cocktail was injected. Third g Ancef 2nd g tranexamic acid given at time of wound closure. Arthrotomy was closed with 2. Vicryl suture. Wall flexion was 130 full extension. Arthrotomy was oversewn with 1. Unidirectional barbed strata fix suture and the split with 1. Vicryl. Skin was closed with 2 sub his Vicryl through subcuticular Monocryl and glue EBL was
[2020-10-10 11:37] LABS: Glucose Point of Care 167 mg/dl (65-105)
[2020-10-10] MEDS: oxyCODONE HCL (*CRX) 5 MG TAB IR PO ×3 (13:31→20:18)
[2020-10-10] MEDS: DEXTROSE 5%/0.45% SOD CHL 1,000 ML 100 ML IV CONT (13:32)
[2020-10-10] MEDS: CEPHALEXIN 500 MG CAPSULE PO ×2 (14:06→18:48)
--- NOTE | 2020-10-10 15:25 | PM.IMCN ---
Assessment and Plan Assessment and plan (1) S/P total knee arthroplasty: Code(s): Z96.659 - Presence of unspecified artificial knee joint Status: Acute Assessment and Plan: the patient was placed on Eliquis for DVT prophylaxis per orthopedic physician. The patient plans on going home tomorrow. PT and OT per orthopedic doctor. Pain management per Orthopedic physician. Postop care per orthopedic physician. (2) Type 2 diabetes mellitus without complication, without long-term current use of insulin: Code(s): E11.9 - Type 2 diabetes mellitus without complications Status: Acute Assessment and Plan: Accu-Cheks AC and HS. Check A1c. The patient was resumed on metformin. Please continue to monitor basic metabolic panel. (3) Anxiety: Code(s): F41.9 - Anxiety disorder, unspecified Status: Acute Assessment and Plan: Patient stated she had 1 panic attack in the past. I do not see any current medications for this. (4) Mixed hyperlipidemia: Code(s): E78.2 - Mixed hyperlipidemia Status: Acute Assessment and Plan: Continue with home medications (5) Hypertension: Code(s): I10 - Essential (primary) hypertension Status: Chronic Assessment and Plan: continue with the amlodipine. HPI Data of Consult Consult date: 10/10/20 Requesting Physician: Giovanny Basilio MD Primary Care Provider: Javier Morataya MD Consult Narrative Narrative: Jerica Walker is a 80 year old female who has had her left total knee arthroplasty in 2019 and has done very well with that. The patient has severe degenerative joint disease to both every days. It she lives with her and he does assist with her care. The patient has pain in her right knee on a daily basis. The patient decided to undergo a right total knee arthroplasty per Dr. rivera today. Please see operative note. The patient was having bone on bone arthritis pain, I thank Dr. rivera for involving us in this patient's care and I will be happy to consult on this patient. The patient is admitted to regular [facility] on the date of service of 10/10/2020. Review of Systems Review of Systems: All systems reviewed & are unremarkable except as noted in HPI and below Constitutional: Constitutional: Reports as per HPI and Reports no additional constitutional complaints Eyes: Eyes: Reports as per HPI and Reports no additional eye complaints ENT: Reports system reviewed and no additional complaints, except as documented and Reports Normal hearing present Cardiovascular: Cardiovascular: Reports no additional cardiovascular complaints Respiratory: Respiratory: Reports no additional respiratory complaints and Reports no additional respiratory complaints Gastrointestinal: Gastrointestinal: Reports as per HPI and Reports no additional gastrointestinal complaints Musculoskeletal: Musculoskeletal: Reports no additional musculoskeletal complaints Integumentary/Breasts: Skin/Breast: Reports system reviewed and no additional complaints, except as docu and Reports as per HPI Neurologic: Reports system reviewed and no additional complaints, except as documented, Reports as per HPI and Reports Normal hearing present Psychiatric: Psychiatric: Reports no additional psychiatric complaints and Reports as per HPI Endocrine: Endocrine: Reports no additional endocrine complaints Hematologic/Lymphatic: Hematologic/Lymphatic: Reports no additional hematologic/lymphatic complaints Allergic/Immunologic: Allergic/Immunologic: Reports no additional allergic/immunologic complaints [facility], LAT[facility] Past Medical History Medical History (Updated 10/10/20 @ 15:40 by Nano Alanis NP) Acute arthritis Anxiety Cataracts, bilateral Colon polyp Duodenal ulcer High cholesterol Hypertension Mixed hyperlipidemia Obesity, unspecified Painful joint Post-menopausal Rectal polyp Skin cancer (melanoma) Type 2 diabetes mellitus witho
[2020-10-10] MEDS: SENNA/DOCUSATE SODIUM TABLET 2 TAB PO (17:10)
[2020-10-10] MEDS: metFORMIN HCL XR 500 MG TAB.SR.24H 1000 MG PO (17:10)
[2020-10-10 17:49] LABS: Glucose Point of Care 191 mg/dl (65-105)
[2020-10-10 21:04] LABS: Glucose Point of Care 195 mg/dl (65-105)
[2020-10-11] VITALS (7 sets, daily range): BP systolic 110–138; BP diastolic 41–60; PULSE 75–90; RESP 16; TEMP 36.2–37.1; O2SAT 93–99
--- NOTE | ~2020-10-11 | XR_ITS ---
EXAMINATION: XR knee RT 2V DATE: 10/10/2020 11:29 INDICATION: Right total knee arthroplasty. Postop. TECHNIQUE: 2 views of right knee were obtained. COMPARISON: Right knee radiographs 03/03/2016 FINDINGS: There is a total right knee arthroplasty without patellar resurfacing in near-anatomic alig nment. No fracture. There is gas in the knee joint and soft tissues, consistent with recent surgery. IMPRESSION: 1. Total right knee arthroplasty in near-anatomic alignment. Reviewed, dictated and finalized at location A.
[2020-10-11] MEDS: oxyCODONE HCL (*CRX) 5 MG TAB IR PO ×10 (00:01→20:40)
[2020-10-11] MEDS: ACETAMINOPHEN 500 MG TABLET 1000 MG PO ×4 (00:01→18:01)
[2020-10-11] MEDS: CEPHALEXIN 500 MG CAPSULE PO ×4 (00:01→17:13)
[2020-10-11] MEDS: DEXTROSE 5%/0.45% SOD CHL 1,000 ML 100 ML IV CONT (01:31)
[2020-10-11 05:51] LABS: Basophils Absolute Auto 0.1 K/mm3 (0.0-0.1); Basophils Percent Auto 0.3 % (0.2-1.2); Eosinophils Percent Auto 0.1 % (0-4.4); Hematocrit 31.7 % (37.0-47.0); Hemoglobin 10.3 g/dL (12.0-15.0); Immature Granulocyte Absolute 0.09 K/mm3 (0.00-0.031); Immature Granulocyte Percent A 0.5 % (0-0.5); Lymphocytes Absolute Auto 4.65 K/mm3 (0.9-3.2); Lymphocytes Percent Auto 26.3 % (18.3-44.2); Mean Corpuscular HGB Conc 32.5 g/dl (32-36); Mean Corpuscular Hemoglobin 31.3 pg (26-34); Mean Corpuscular Volume 96.4 fl (80-100); Mean Platelet Volume 9.4 fl (7.4-10.4); Monocytes Absolute Auto 1.9 K/mm3 (0.1-0.6); Monocytes Percent Auto 10.7 % (2.6-8.5); Neutrophils Percent Auto 62.1 % (45.5-73.1); Platelet Count Result 181 k/mm3 (150-375); Red Blood Count 3.29 M/mm3 (4.2-5.4); Red Cell Distribution Width 14.7 % (11.5-14.5); White Blood Count 17.7 K/mm3 (4.5-10.0)
[2020-10-11 06:04] LABS: Anion Gap 8 mmol/L (8-16); Blood Urea Nitrogen 13 mg/dL (7-17); Calcium 8.3 mg/dL (8.4-10.2); Carbon Dioxide 26 mmol/L (22-30); Chloride 103 mmol/L (98-107); Estimated CRCL calculation 49 ml/min; Estimated Glomerular Filt Rate > 60; Glucose 129 mg/dL (65-105); Potassium 3.9 mmol/L (3.4-5.0); Sodium 137 mmol/L (137-145)
--- NOTE | 2020-10-11 07:25 | PM.PNORT ---
Progress Note: A&P Additional Plan POD 1 alert avss. pt having increasing pain overnight-soft tissue block had worn off, pt having mod to severe pain now,only getting scheduled narcotic not prn as well, have discussed with nurse , will get mobic this am will help with pain as well, pt at this point is not comfortable about going home today due to pain being uncontrolled, will have pt take 2 oxycodone q4h , hopefully will get pain under control and pt will feel comfortable about going home today, if not may need to keep for another day. labs-noted Subjective Subjective Date/Time Seen: 10/11/20 07:25 Objective Data Vital Signs Vital Signs: Vital Signs - 24 hr 10/10/20 11:08 10/10/20 11:20 10/10/20 11:35 Temperature 36.4 C Pulse Rate 88 94 94 Respiratory Rate 16 24 H 21 H Blood Pressure 154/68 H 156/79 H 158/69 H Pulse Oximetry 98 97 97 10/10/20 12:05 10/10/20 12:20 10/10/20 12:35 Temperature 36.1 C L Pulse Rate 96 93 93 Respiratory Rate 12 16 16 Blood Pressure 139/67 158/64 H 152/62 H Pulse Oximetry 96 96 92 10/10/20 12:50 10/10/20 13:05 10/10/20 13:20 Temperature 36.2 C L 36.1 C L Pulse Rate 92 86 Respiratory Rate 16 16 Blood Pressure 151/69 H 137/64 Pulse Oximetry 98 96 98 10/10/20 14:12 10/10/20 16:20 10/10/20 18:12 Temperature 36.4 C L 36.0 C L Pulse Rate 90 81 Respiratory Rate 18 16 Blood Pressure 150/69 H 132/59 L Pulse Oximetry 92 94 98 10/10/20 20:00 10/10/20 21:41 10/11/20 01:03 Temperature 36.8 C 36.4 C L Pulse Rate 78 82 Respiratory Rate 16 16 Blood Pressure 125/60 110/41 L Pulse Oximetry 98 96 99 10/11/20 05:29 Temperature 37.1 C Pulse Rate 75 Respiratory Rate 16 Blood Pressure 138/55 L Pulse Oximetry 98 Intake/Output Intake/Output: Intake & Output 10/08/20 10/09/20 10/10/20 10/11/20 23:59 23:59 23:59 23:59 Intake Total 2280 450 Output Total 500 2200 Balance 1780 -1750 Meds/Results Medications: Active Medications Generic Name Dose Route Start Last Admin Trade Name Nevin PRN Reason Stop Dose Admin Acetaminophen 1,000 mg 10/10/20 13:00 10/11/20 06:00 Acetaminophen 500 Mg Tablet PO 1,000 mg Q6H RICKI Administration Amlodipine Besylate 5 mg 10/11/20 09:00 Amlodipine Besylate 5 Mg Tablet PO DAILY RICKI Apixaban 2.5 mg 10/11/20 09:00 Apixaban 2.5 Mg Tablet PO Q12HR RCIKI Cephalexin HCl 500 mg 10/10/20 12:27 10/11/20 05:01 Cephalexin 500 Mg Capsule PO 10/22/20 12:28 500 mg Q6HR RICKI Administration Dextrose 12.5 gm 10/10/20 15:31 Dextrose 50% 25 Gm/50 Ml Syringe IV PUSH PRN PRN Hypoglycemia Protocol Glucagon 1 mg 10/10/20 15:31 Glucagon For Inj 1 Mg Vial IM PRN PRN Hypoglycemia Protocol Glucose 15 gm 10/10/20 15:31 Glucose Oral Gel 15 Gm Of Glucse In 37.5 Gm Tube PO PRN PRN Hypoglycemia Protocol Cefazolin Sodium 1 gm in 50 mls @ 100 mls/hr 10/10/20 15:00 10/11/20 06:30 Ancef 1 Gm/D5w 50 Ml Pm IVPB 10/11/20 07:29 Infused Q8H RICKI Infusion Vancomycin HCl 1,000 mg in 250 mls @ 250 mls/hr 10/10/20 19:00 10/11/20 06:33 Vancomycin 1,000 Mg/D5w 250 Ml IVPB 10/11/20 07:59 250 mls/hr Q12H RICKI Administration Dextrose/Sodium Chloride 1,000 mls @ 100 mls/hr 10/10/20 12:27 10/11/20 01:31 Dextrose 5% Sodium Chloride 0.45% IV CONT 100 mls/hr .Q10H RICKI Administration Dextrose 1,000 mls @ 100 mls/hr 10/10/20 15:31 Dextrose 5% 1,000 Ml IVPB PRN PRN Hypoglycemia Protocol Insulin Aspart 2 - 5 units 10/10/20 17:00 10/10/20 17:46 Insulin Aspart (*Bkc) 100 Units/Ml SUB-Q Not Given TIDWM [facility] Protocol Loratadine 10 mg 10/10/20 12:27 Loratadine 10 Mg Tablet PO DAILY PRN Allergy Symptoms Meloxicam 7.5 mg 10/11/20 08:00 Meloxicam 7.5 Mg Tablet PO DAILY@0800 [facility] Metformin HCl 1,000 mg 10/10/20 18:00 10/10/20 17:10 Metformin Hcl Xr 500 Mg Tab.Sr.24h PO 1,000
[2020-10-11] MEDS: ROSUVASTATIN 10 MG TABLET PO (08:30)
[2020-10-11] MEDS: polyethylene glycoL 3350 17 GM POWD.PACK PO (08:30)
[2020-10-11] MEDS: APIXABAN 2.5 MG TABLET PO ×2 (08:30→20:39)
[2020-10-11] MEDS: SENNA/DOCUSATE SODIUM TABLET 2 TAB PO ×2 (08:32→17:13)
[2020-10-11] MEDS: amLODIPine BESYLATE 5 MG TABLET PO (08:32)
[2020-10-11] MEDS: MELOXICAM 7.5 MG TABLET PO (08:33)
[2020-10-11] MEDS: MORPHINE SULFATE (*CRX) 2 MG/ML INJ IV PUSH ×2 (08:34→14:44)
[2020-10-11 09:04] LABS: Glucose Point of Care 123 mg/dl (65-105)
[2020-10-11] MEDS: PANTOPRAZOLE 40 MG TABLET PO (09:10)
--- NOTE | 2020-10-11 09:14 | PM.IMPN ---
Progress Note: A&P Assessment and Plan (1) S/P total knee arthroplasty: Code(s): Z96.659 - Presence of unspecified artificial knee joint Status: Acute Assessment and Plan: Performed on 10/10/[address] Basilio. she tolerated the procedure well but is having increased pain postoperatively. Management per orthopedic surgery she has been started on Eliquis for DVT prophylaxis (2) Type 2 diabetes mellitus without complication, without long-term current use of insulin: Code(s): E11.9 - Type 2 diabetes mellitus without complications Status: Acute Assessment and Plan: last A1c in August 2020 was 6.0. Glucose is well controlled. Continue Accu-Cheks, sliding scale insulin, hypoglycemic protocol continue metformin (3) Hypertension: Code(s): I10 - Essential (primary) hypertension Status: Chronic Assessment and Plan: Blood pressure reviewed and was elevated at times yesterday, but has been well controlled today. Last BP 138/55. continue amlodipine (4) Constipation: Code(s): K59.00 - Constipation, unspecified Status: Acute Assessment and Plan: secondary to surgery and narcotic pain medication continue MiraLax and senna/docusate scheduled. she should continue taking this upon discharge home bisacodyl suppository as needed limit narcotic pain medications (5) Leukocytosis: Code(s): D72.829 - Elevated white blood cell count, unspecified Status: Acute Assessment and Plan: This is likely reactive secondary to surgery. No signs or symptoms to suggest underlying infection. Subjective Date/time seen: 10/11/20 09:14 Interval history: Date of service: 10/11/2020 Jerica Walker is an 80-year-old female with history of hypertension, hyperlipidemia, and type 2 diabetes mellitus who is now s/p right total knee arthroplasty who is seen in consultation for medical management. Her pain is worse today after her nerve block wore off and this morning she said it was over a 10. At this time, she rates her pain as 9/10 in the knee and all the way up to mid thigh. It is worse with movement. She is more comfortable at rest. Other than this, she has no additional complaints. Denies shortness of breath, chest pain, nausea, vomiting, fever, chills, dizziness, lightheadedness, or numbness/tingling in the extremities. She had a good breakfast this morning. She has not had a bowel movement or passed flatus since her surgery but is belching. She is voiding without difficulty. She does not know if she can go home today if her pain remains this severe. Ultimately, her plan is to recover at home. Her will be there to assist her. She has 2 steps to get into her house and then an additional 7 steps to get to her bedroom. She has therapy arranged with [facility] starting on Thursday. Review of Systems Review of Systems: All systems reviewed & are unremarkable except as noted in HPI and below Exam Narrative: Exam Narrative: Ms. Walker is a well-nourished, well-appearing 80-year-old female who is sitting in a chair by the bedside. She appears comfortable and is in NARD. Neuro: awake, alert and oriented x4, speech clear, no focal neuro deficits noted HEENMT: normocephalic, atraumatic, EOMI, sclerae anicteric, moist oral mucosa Neck: supple, no lymphadenopathy Respiratory: clear to auscultation bilaterally, nonlabored breathing Cardio: regular rate, regular rhythm with S1-S2 Abdomen: protuberant, normoactive bowel sounds, soft, nontender to palpation Extremities: right knee incision covered in bandage. The knee is tender to palpation. Trace pedal edema, no erythema, cyanosis, clubbing. DP pulses 2+ bilaterally Skin: no rashes or lesions, warm and dry Psych: appropriate mood and affect, judgment and insight intact Objective Data Vital Signs Vital Signs: Vital Signs - 24 hr 10/10/20 11:08 10/10/20 11:20 10/10/20
--- NOTE | 2020-10-11 09:35 | WPDANESPN ---
Anes - Prog Note Post-Op Date/Time: 10/11/20 09:35 Cardiovascular status: normal Respiratory status: normal Airway patency: baseline Mental status: baseline Post-Op hydration status: normal Vital Signs: Last Vital Signs Temp 37.1 C 10/11/20 05:29 Pulse 75 10/11/20 05:29 Resp 16 10/11/20 05:29 BP 138/55 L 10/11/20 05:29 Pulse Ox 98 10/11/20 05:29 Pain Score (VAS): 5 I/O: Intake & Output 10/10/20 10/11/20 10/11/20 23:59 07:59 15:59 Intake Total 1830 450 450 Output Total 500 2200 Balance 1330 -1750 450 Laboratory Tests 10/11/20 05:30 10/11/20 05:30 10/10/20 10/10/20 10/10/20 06:07 11:35 17:45 WBC RBC Hgb Hct MCV MCH MCHC RDW Plt Count MPV Immature Gran % (Auto) Neut % (Auto) Lymph % (Auto) [place] % (Auto) Eos % (Auto) Baso % (Auto) Lymph # (Auto) [place] # (Auto) Eos # (Auto) Baso # (Auto) Abs Immat Gran (auto) Absolute Neuts (auto) Absolute Nucleated RBC Nucleated RBC % Sodium Potassium Chloride Carbon Dioxide Anion Gap BUN Creatinine Estim Creat Clear Calc Estimated GFR Glucose POC Capillary Glucose 167 H 191 H Calcium Blood Type AB Negative Antibody Screen Positive Antibody Identification Anti-D Antigen Identification Cancelled ANÍBAL, Poly Interpret Negative Enhanced Crossmatch See Detail 10/10/20 10/11/20 10/11/20 20:16 05:30 05:30 WBC 17.7 H RBC 3.29 L Hgb 10.3 L Hct 31.7 L MCV 96.4 MCH 31.3 MCHC 32.5 RDW 14.7 H Plt Count 181 MPV 9.4 Immature Gran % (Auto) 0.5 Neut % (Auto) 62.1 Lymph % (Auto) 26.3 [place] % (Auto) 10.7 H Eos % (Auto) 0.1 Baso % (Auto) 0.3 Lymph # (Auto) 4.65 H [place] # (Auto) 1.9 H Eos # (Auto) 0.0 Baso # (Auto) 0.1 Abs Immat Gran (auto) 0.09 H Absolute Neuts (auto) 11.0 H Absolute Nucleated RBC 0.0 Nucleated RBC % 0.0 Sodium 137 Potassium 3.9 Chloride 103 Carbon Dioxide 26 Anion Gap 8 BUN 13 D Creatinine 0.80 Estim Creat Clear Calc 49 Estimated GFR > 60 Glucose 129 H POC Capillary Glucose 195 H Calcium 8.3 L Blood Type Antibody Screen Antibody Identification Antigen Identification ANÍBAL, Poly Interpret Enhanced Crossmatch 10/11/20 08:21 WBC RBC Hgb Hct MCV MCH MCHC RDW Plt Count MPV Immature Gran % (Auto) Neut % (Auto) Lymph % (Auto) [place] % (Auto) Eos % (Auto) Baso % (Auto) Lymph # (Auto) [place] # (Auto) Eos # (Auto) Baso # (Auto) Abs Immat Gran (auto) Absolute Neuts (auto) Absolute Nucleated RBC Nucleated RBC % Sodium Potassium Chloride Carbon Dioxide Anion Gap BUN Creatinine Estim Creat Clear Calc Estimated GFR Glucose POC Capillary Glucose 123 H Calcium Blood Type Antibody Screen Antibody Identification Antigen Identification ANÍBAL, Poly Interpret Enhanced Crossmatch Post-procedural complaints: none Patient Feedback: Patient satisfied with anesthetic care.
--- NOTE | 2020-10-11 11:11 | PC.NURSE ---
admin scheduled dose of Laya at 1000; pt had just finished with PT and stated that helped with the leg pain and stated her pain was down to an 8
--- NOTE | 2020-10-11 11:35 | PC.NURSE ---
pt states pain is down to a 7; pt also states that her hand is itchy and swollen since the morphine IV push; she does not want any more morphine at this time; admin another 5mg Laya PRN; pt states she thinks PT this afternoon may help
[2020-10-11 11:45] LABS: Glucose Point of Care 150 mg/dl (65-105)
[2020-10-11] MEDS: metFORMIN HCL XR 500 MG TAB.SR.24H 1000 MG PO (17:12)
[2020-10-11 17:34] LABS: Glucose Point of Care 133 mg/dl (65-105)
[2020-10-11 20:06] LABS: Hemoglobin A1C 6.1 % (<5.7)
[2020-10-11 21:31] LABS: Glucose Point of Care 140 mg/dl (65-105)
[2020-10-11] MEDS: LORATADINE 10 MG TABLET PO (23:31)
--- NOTE | 2020-10-11 23:34 | PC.NURSE ---
PT C/O ITCHING FROM MORPHINE GIVEN PREVIOUSLY IN THE DAY. GAVE HER PRN CLARITIN TO RELIEVE SYMPTOMS
[2020-10-12] MEDS: oxyCODONE HCL (*CRX) 5 MG TAB IR PO ×4 (00:50→08:04)
[2020-10-12] MEDS: CEPHALEXIN 500 MG CAPSULE PO ×2 (00:50→05:05)
[2020-10-12] MEDS: ACETAMINOPHEN 500 MG TABLET 1000 MG PO ×2 (00:50→06:28)
[2020-10-12 05:51] VITALS: BP 126/51; PULSE 79; RESP 16; TEMP 37; O2SAT 91
--- NOTE | 2020-10-12 06:53 | PM.PNORT ---
Progress Note: A&P Additional Plan POD 2 alert avss pt doing much better this am, was having difficult time with pain controll yesterday and had to keep her for additional night, was having problems with participating with PT due to pain, pt needed 2 doses of morphine yesterday, this am pt is calm pain is well controlled, wd-dry NVI. pt is able to move the leg on her own in bed this am with min pain, she is eager to go home today. plan to have her do morning P then home Subjective Subjective Date/Time Seen: 10/12/20 06:53 Objective Data Vital Signs Vital Signs: Vital Signs - 24 hr 10/11/20 10:11 10/11/20 10:35 10/11/20 14:00 Temperature 36.2 C L 36.4 C L Pulse Rate 76 81 Respiratory Rate 16 16 Blood Pressure 121/43 L 137/60 Pulse Oximetry 97 95 96 10/11/20 20:00 10/11/20 21:21 10/12/20 05:51 Temperature 36.4 C L 37.0 C Pulse Rate 90 90 79 Respiratory Rate 16 16 16 Blood Pressure 128/49 L 126/51 L Pulse Oximetry 93 93 91 Intake/Output Intake/Output: Intake & Output 10/09/20 10/10/20 10/11/20 10/12/20 23:59 23:59 23:59 23:59 Intake Total 2280 1900 Output Total 500 3850 600 Balance 1780 -1950 -600 Meds/Results Medications: Active Medications Generic Name Dose Route Start Last Admin Trade Name Freq PRN Reason Stop Dose Admin Acetaminophen 1,000 mg 10/10/20 13:00 10/12/20 06:28 Acetaminophen 500 Mg Tablet PO 1,000 mg Q6H RICKI Administration Amlodipine Besylate 5 mg 10/11/20 09:00 10/11/20 08:32 Amlodipine Besylate 5 Mg Tablet PO 5 mg DAILY RICKI Administration Apixaban 2.5 mg 10/11/20 09:00 10/11/20 20:39 Apixaban 2.5 Mg Tablet PO 2.5 mg Q12HR RICKI Administration Bisacodyl 10 mg 10/11/20 09:39 Bisacodyl 10 Mg Suppository RECTAL QAM PRN Constipation Cephalexin HCl 500 mg 10/10/20 12:27 10/12/20 05:05 Cephalexin 500 Mg Capsule PO 10/22/20 12:28 500 mg Q6HR RICKI Administration Dextrose 12.5 gm 10/10/20 15:31 Dextrose 50% 25 Gm/50 Ml Syringe IV PUSH PRN PRN Hypoglycemia Protocol Glucagon 1 mg 10/10/20 15:31 Glucagon For Inj 1 Mg Vial IM PRN PRN Hypoglycemia Protocol Glucose 15 gm 10/10/20 15:31 Glucose Oral Gel 15 Gm Of Glucse In 37.5 Gm Tube PO PRN PRN Hypoglycemia Protocol Dextrose 1,000 mls @ 100 mls/hr 10/10/20 15:31 Dextrose 5% 1,000 Ml IVPB PRN PRN Hypoglycemia Protocol Insulin Aspart 2 - 5 units 10/10/20 17:00 10/11/20 17:14 Insulin Aspart (*Bkc) 100 Units/Ml SUB-Q Not Given TIDWM RICKI Protocol Loratadine 10 mg 10/10/20 12:27 10/11/20 23:31 Loratadine 10 Mg Tablet PO 10 mg DAILY PRN Administration Allergy Symptoms Meloxicam 7.5 mg 10/11/20 08:00 10/11/20 08:33 Meloxicam 7.5 Mg Tablet PO 7.5 mg DAILY@0800 RICKI Administration Metformin HCl 1,000 mg 10/10/20 18:00 10/11/20 17:12 Metformin Hcl Xr 500 Mg Tab.Sr.24h PO 1,000 mg QPM RICKI Administration Morphine Sulfate 2 mg 10/10/20 12:27 10/11/20 14:44 Morphine Sulfate (*Crx) 2 Mg/Ml Inj IV PUSH 2 mg Q1H PRN Administration Pain Rated 7-10 Naloxone HCl 0.1 mg 10/10/20 12:27 Naloxone Hcl 0.4 Mg/Ml Vial IV PUSH Q2M PRN Opiate Reversal Ondansetron HCl 4 mg 10/10/20 12:27 Ondansetron Inj 4 Mg/2 Ml Vial IV PUSH Q4H PRN Nausea And Vomiting Oxycodone HCl 5 mg 10/10/20 12:27 10/11/20 17:55 Oxycodone Hcl (*Crx) 5 Mg Tab Ir PO 5 mg Q4H PRN Administration Pain Rated 7-10 Oxycodone HCl 5 mg 10/10/20 13:00 10/12/20 05:05 Oxycodone Hcl (*Crx) 5 Mg Tab Ir PO 5 mg Q4H RICKI Administration Pantoprazole Sodium 40 mg 10/11/20 09:00 10/11/20 09:10 Pantoprazole 40 Mg Tablet PO 40 mg DAILY IRCKI Administration Polyethylene Glycol 17 gm 10/11/20 09:00 10/11/20 08:30 Polyethylene Glycol 3350 17 Gm Powd.Pack PO 17 gm QAM RICKI Administration Rosuvastatin Calcium 10 mg 07
--- NOTE | 2020-10-12 07:03 | PM.DS ---
DS: Admitting Diagnosis Admitting Diagnosis Admitting Diagnosis: right knee DJD DS: Summary Hospital Course Hospital Course: patient was stable, was having issues with pain control on POD 1 and needed to be kept additional night to improve pain control Time Spent with Patient Time attestation: Total time spent providing and/or coordinating discharge services:80-year-old female who underwent right total knee arthroplasty on 10/10. Underwent procedure without any complications. Postop day 1 patient was having rather significant pain. She was getting her scheduled oxycodone but not her p.r.n. oxycodone. Her soft tissue block wore off and she had increase in pain. Morning of postop day 1 she rated her pain at 8/10. She was given her morning dose of meloxicam 7.5 mg as well as 2 oxycodone 5 mg q.4 hours. She continued to have significant pain she did get 2 doses of morphine through the day on postop day 1 and still complaining of significant pain. Because of pain and not being controlled patient was kept overnight for continued care. Postop day 2 patient was doing much better. Her pain was well under control. Her wound has been dry she has a Mepilex dressing over it. Neurovascular she is intact. She has just mild swelling of the knee. No swelling in the lower extremities. She is on Eliquis for 2 weeks followed by baby aspirin twice a day for DVT prophylaxis. She is ready to be discharged home on 10/12. Home on regular diet. Patient was advised to keep leg elevated home prevent swelling but also to exercise on a regular basis. She has outpatient therapy starting next Thursday. She will go home on oxycodone and schedule Tylenol she is also on Mobic 7.5 mg while she is on the Eliquis and will increase to 15 mg when she starts the baby aspirin. Patient will go home on MiraLax and Senokot. Patient was advised any questions or concerns when she goes home schooled office otherwise associated 0.8. DS: Data Data Completed and Pending Labs on day of discharge: Labs from last 24 hours 10/11/20 10/11/20 10/11/20 20:38 17:10 17:04 POC Capillary Glucose 140 H 133 H Hemoglobin A1c 6.1 H 10/11/20 10/11/20 11:42 08:21 POC Capillary Glucose 150 H 123 H Hemoglobin A1c Discharge Plan Discharge Attending physician on discharge: Arya Vogel Consulting providers: Saida Gregory ; Noé Leyva V. Discharging Clinician: Arya Vogel Anticipated Discharge Date/Time: 10/12/20 11:57 Patient Disposition: Home, Self-Care Activity: may shower and other - see discharge instructions Diet: as tolerated Wound Care Instructions: follow printed instructions Discharge Instructions: Hospitalist discharge instructions: Recommend taking MiraLax and Colace daily to help you have regular bowel movements, especially following surgery and when taking pain medication you have been started on a medication, Eliquis, which can put you at risk for bleeding. It is important to monitor for any signs or symptoms of bleeding which include blood in your stools, dark or tarry stools, blood in your urine, nosebleeds, bleeding from your gums, coughing up blood, vomiting blood, or large nonhealing bruises. Call your doctor or seek medical care if you experience any of the above. Call 911 if you have a fall, injury, or accident which puts you at risk for bleeding. KAREEM NOBLES M.D [facility] [address] [place] [id number] POST-OPERATIVE DISCHARGE INSTRUCTIONS TOTAL KNEE ARTHROPLASTY 1. When resting, lie on back with leg elevated above hear to minimize swelling. Significant swelling could indicate a blood clot and if this occurs call the office (or go to the ER) to have a venous ultrasound. 2. Do exercise 5 times a day. 3. Do not sit with leg down except for meals.Limit sitting in chair to 30 min 3 times a day 4. Wound Care: Nursing will give additional
[2020-10-12] MEDS: amLODIPine BESYLATE 5 MG TABLET PO (08:05)
[2020-10-12] MEDS: APIXABAN 2.5 MG TABLET PO (08:05)
[2020-10-12] MEDS: MELOXICAM 7.5 MG TABLET PO (08:05)
[2020-10-12] MEDS: polyethylene glycoL 3350 17 GM POWD.PACK PO (08:05)
[2020-10-12] MEDS: PANTOPRAZOLE 40 MG TABLET PO (08:05)
[2020-10-12] MEDS: ROSUVASTATIN 10 MG TABLET PO (08:05)
[2020-10-12] MEDS: SENNA/DOCUSATE SODIUM TABLET 2 TAB PO (08:05)
--- NOTE | 2020-10-12 11:11 | PC.NURSE ---
Extra dressing sent home with patient
== END 2020-10-12 11:21 | disposition home or self-care (01) ==
LOC: ANHSURGERY 15:50 → ANH2MED 15:50
PROVIDERS: Nurse Practitioner; Admitting Provider Orthopaedic Surgery; PCP Internal Medicine; Visit Provider Orthopaedic Surgery
PROC: (CPT 27447; principal; 2020-10-10 07:30)
DX: M17.11 Unilateral primary osteoarthritis, right knee (principal); E11.9 Type 2 diabetes mellitus without complications; D72.829 Elevated white blood cell count, unspecified; F41.9 Anxiety disorder, unspecified; E78.2 Mixed hyperlipidemia; I10 Essential (primary) hypertension; K59.03 Drug induced constipation; Z96.652 Presence of left artificial knee joint; Z85.828 Personal history of other malignant neoplasm of skin; Z87.891 Personal history of nicotine dependence; Z79.84 Long term (current) use of oral hypoglycemic drugs
CPT/HCPCS: 27447; 36415; 73560; 80048; 82948; 83036; 85025; 86850; 86880; 86900; 86901; 86922; 97110; 97116; 97161; 97165; A9270; C1713; C1776; G0378; J0171; J0330; J0690; J1100; J2270; J2405; J2704; J2795; J3010; J3370; J7120

== ENCOUNTER → 2021-02-27 01:44 | Outpatient (CLI) | payer MEDICARE, OTHER, SELFPAY ==
[2021-02-27 18:14] LABS: SARS-CoV-2 RNA PCR Negative
== END ==
PROVIDERS: PCP Internal Medicine; Visit Provider Internal Medicine
DX: R68.89 Other general symptoms and signs (principal); Z20.822 Contact with and (suspected) exposure to COVID-19
CPT/HCPCS: C9803; U0003; U0005

== ENCOUNTER 2021-03-25 13:36 | Outpatient (CLI) | payer MEDICARE, OTHER, SELFPAY ==
[2021-03-25 17:28] LABS: Add Urine Microscopic? YES; Appearance Urine Clear (Clear); Bacteria Urine Trace /hpf; Bilirubin Urine Negative (Negative); Blood Urine 1+ (Negative); Color Urine Straw (Yellow); Glucose Urine UA Negative (Negative); Ketones Urine Negative (Negative); Leukocyte Esterase Ur Negative LEU/UL (Negative); Mucus Urine Rare /lpf; Nitrate Urine Negative (Negative); Protein Urine Negative (Negative); RBC Urine 0-2 /hpf (0-2); Squamous Epithelial Cell Urine Rare /hpf (Few); Urobilinogen Urine Negative mg/dL (<2.0); WBC Urine 0-3 /hpf
== END 2021-03-25 13:37 | disposition home or self-care (01) ==
PROVIDERS: PCP Internal Medicine; Visit Provider Internal Medicine
DX: N39.0 Urinary tract infection, site not specified (principal)
CPT/HCPCS: 81001

== ENCOUNTER 2021-04-10 13:32 | Outpatient (CLI) | payer MEDICARE, OTHER, SELFPAY ==
[2021-04-10 14:28] LABS: Basophils Absolute Auto 0.1 K/mm3 (0.0-0.1); Basophils Percent Auto 0.4 % (0.2-1.2); Eosinophils Absolute Auto 0.2 K/mm3 (0-0.3); Eosinophils Percent Auto 1.6 % (0-4.4); Hematocrit 38.8 % (37.0-47.0); Immature Granulocyte Absolute 0.04 K/mm3 (0.00-0.031); Immature Granulocyte Percent A 0.4 % (0-0.5); Lymphocytes Absolute Auto 4.61 K/mm3 (0.9-3.2); Lymphocytes Percent Auto 40.4 % (18.3-44.2); Mean Corpuscular HGB Conc 33.5 g/dl (32-36); Mean Corpuscular Hemoglobin 30.6 pg (26-34); Mean Corpuscular Volume 91.3 fl (80-100); Mean Platelet Volume 8.9 fl (7.4-10.4); Monocytes Absolute Auto 0.9 K/mm3 (0.1-0.6); Monocytes Percent Auto 7.6 % (2.6-8.5); Neutrophils Absolute Auto 5.7 K/mm3 (1.3-6.7); Neutrophils Percent Auto 49.6 % (45.5-73.1); Platelet Count Result 234 k/mm3 (150-375); Red Blood Count 4.25 M/mm3 (4.2-5.4); Red Cell Distribution Width 15.5 % (11.5-14.5); White Blood Count 11.4 K/mm3 (4.5-10.0)
[2021-04-10 14:42] LABS: Alanine Aminotransferase 17 U/L (4-35); Albumin Level 4.8 g/dL (3.5-5.1); Alkaline Phosphatase 64 U/L (38-126); Anion Gap 10 mmol/L (8-16); Aspartate Amino Transferase 27 U/L (14-36); Bilirubin,Total 0.5 mg/dL (0.2-1.3); Blood Urea Nitrogen 19 mg/dL (7-17); Calcium 9.6 mg/dL (8.4-10.2); Carbon Dioxide 28 mmol/L (22-30); Chloride 102 mmol/L (98-107); Estimated Glomerular Filt Rate > 60; Glucose 113 mg/dL (65-110); Lactate Dehydrogenase 437 U/L (313-618); Potassium 4.3 mmol/L (3.4-5.0); Sodium 140 mmol/L (137-145)
== END 2021-04-10 13:33 | disposition home or self-care (01) ==
LOC: ANHLAB 13:38
PROVIDERS: PCP Internal Medicine; Visit Provider Internal Medicine Hematology & Oncology
DX: C91.10 Chronic lymphocytic leukemia of B-cell type not having achieved remission (principal)
CPT/HCPCS: 36415; 80053; 83615; 85025

== ENCOUNTER 2021-06-19 09:09 | Outpatient (CLI) | payer MEDICARE, OTHER, SELFPAY ==
[2021-06-19 09:44] LABS: Basophils Absolute Auto 0.1 K/mm3 (0.0-0.1); Basophils Percent Auto 0.4 % (0.2-1.2); Eosinophils Absolute Auto 0.2 K/mm3 (0-0.3); Eosinophils Percent Auto 1.9 % (0-4.4); Hematocrit 40.1 % (37.0-47.0); Hemoglobin 13.1 g/dL (12.0-15.0); Immature Granulocyte Absolute 0.05 K/mm3 (0.00-0.031); Immature Granulocyte Percent A 0.4 % (0-0.5); Lymphocytes Absolute Auto 5.67 K/mm3 (0.9-3.2); Lymphocytes Percent Auto 50.2 % (18.3-44.2); Mean Corpuscular HGB Conc 32.7 g/dl (32-36); Mean Corpuscular Hemoglobin 30.5 pg (26-34); Mean Corpuscular Volume 93.3 fl (80-100); Mean Platelet Volume 9.1 fl (7.4-10.4); Monocytes Absolute Auto 0.8 K/mm3 (0.1-0.6); Monocytes Percent Auto 6.8 % (2.6-8.5); Neutrophils Absolute Auto 4.5 K/mm3 (1.3-6.7); Neutrophils Percent Auto 40.3 % (45.5-73.1); Platelet Count Result 216 k/mm3 (150-375); Red Cell Distribution Width 16.2 % (11.5-14.5); White Blood Count 11.3 K/mm3 (4.5-10.0)
[2021-06-19 10:07] LABS: Hemoglobin A1C 5.7 % (<5.7)
[2021-06-19 10:10] LABS: Alanine Aminotransferase 20 U/L (4-35); Albumin Level 4.7 g/dL (3.5-5.1); Alkaline Phosphatase 57 U/L (38-126); Anion Gap 7 mmol/L (8-16); Aspartate Amino Transferase 31 U/L (14-36); Bilirubin,Total 0.5 mg/dL (0.2-1.3); Blood Urea Nitrogen 20 mg/dL (7-17); Calcium 9.2 mg/dL (8.4-10.2); Carbon Dioxide 29 mmol/L (22-30); Chloride 104 mmol/L (98-107); Cholesterol 189 mg/dL (0-200); Estimated Glomerular Filt Rate > 60; Glucose 116 mg/dL (65-110); HDL Direct 64 mg/dL; Sodium 140 mmol/L (137-145); Triglycerides 140 mg/dL (<150)
[2021-06-19 10:20] LABS: LDL Cholesterol Direct 67 mg/dL
[2021-06-19 10:28] LABS: Vitamin D 25 Hydroxy 34.5 ng/mL
[2021-06-19 10:54] LABS: Creatinine Urine 97.3 mg/dL
[2021-06-19 10:59] LABS: MALB Creatinine Ratio 6.8 mg/g (0-30); Microalbumin Urine Random 6.6 mg/L (0-16.7)
== END 2021-06-19 09:10 | disposition home or self-care (01) ==
PROVIDERS: PCP Internal Medicine; Visit Provider Internal Medicine
DX: C91.10 Chronic lymphocytic leukemia of B-cell type not having achieved remission (principal); I10 Essential (primary) hypertension; E55.9 Vitamin D deficiency, unspecified; E11.9 Type 2 diabetes mellitus without complications; F41.9 Anxiety disorder, unspecified; E78.2 Mixed hyperlipidemia
CPT/HCPCS: 36415; 80053; 80061; 82043; 82306; 83036; 84443; 85025

== ENCOUNTER 2021-08-14 10:17 | Outpatient (CLI) | payer MEDICARE, OTHER, SELFPAY ==
[2021-08-14 11:08] LABS: Appearance Urine Slightly Cloudy (Clear); Bilirubin Urine Negative (Negative); Blood Urine Trace-lysed (Negative); Color Urine Yellow (Yellow); Glucose Urine UA Negative (Negative); Ketones Urine Negative (Negative); Leukocyte Esterase Ur 1+ LEU/UL (Negative); Nitrate Urine Negative (Negative); Protein Urine Negative (Negative)
[2021-08-14 11:14] LABS: Bacteria Urine Trace /hpf; Mucus Urine Rare /lpf; Squamous Epithelial Cell Urine Many /hpf (Few)
[2021-08-14 11:21] LABS: Add Urine Microscopic? YES
== END 2021-08-14 10:18 | disposition home or self-care (01) ==
LOC: ANHLAB 10:19
PROVIDERS: PCP Internal Medicine; Visit Provider Internal Medicine
DX: N39.0 Urinary tract infection, site not specified (principal)
CPT/HCPCS: 81001; 87077; 87086; 87186

== ENCOUNTER → 2021-12-04 15:07 | Outpatient (CLI) | payer MEDICARE, OTHER, SELFPAY ==
--- NOTE | ~2021-12-04 | DEXA_ITS ---
Bone Density Report Name: KIRTI DRISCOLL Age: 81 Sex: Female Ethnicity: White Date of : 1940 Indication: postmenopausal; screening for osteoporosis; height loss; Referring Provider: SRINIVAS, [facility] Study: Bone densitometry was performed. Exam Date: December 04, 2021 Accession number: [id number] Bone Density: Region BMD T-score Z-score Classification AP Spine (L1-L4) 1.181 1.2 4.0 Normal Femoral Neck (Left) 0.806 -0.4 2.0 Normal Total Hip (Left) 0.994 0.4 2.6 Normal Femoral Neck (Right) 0.744 -0.9 1.5 Normal Total Hip (Right) 0.915 -0.2 2.0 Normal Total Hip Mean 0.955 0.1 2.3 Normal World Health Organization criteria for BMD impression classify patients as: Normal (T-score at or above -1.0), Osteopenia (T-score between -1.0 and -2.5), or Osteoporosis (T-score at or below -2.5). 10-year Fracture Risk: FRAX not reported because: All T-scores for Spine Total, Hip Total, Femoral Neck at or above -1.0 Clinical Information Provided by Patient: Patient maximum height was 64 Menopause Age: 57 No regular weight bearing exercise Onset of menses at age 13 Number of children 2 Impression: The patient has normal bone mass. Discussion: BONE DENSITY IS ABOVE THE MINIMUM DESIRABLE LEVEL AT ALL SKELETAL SITES TESTED. This patient?s bone mineral density is above the minimum desirable level (T-score -1.0 or better) at all sites measured. The patient should follow a healthful lifestyle (good nutrition with adequate calcium and vitamin D, and appropriate weight-bearing exercise). Follow-Up: Consider repeating this study in 5 years or sooner if there is some new clinical indication. Reported by: [facility] on 12/04/2021 4:40:00 PM. Reviewed, dictated and finalized at location A. [facility]
== END ==
PROVIDERS: PCP Internal Medicine; Visit Provider Internal Medicine
DX: Z78.0 Asymptomatic menopausal state (principal)
CPT/HCPCS: 77080

== ENCOUNTER 2021-12-12 11:06 | Outpatient (CLI) | payer MEDICARE, OTHER, SELFPAY ==
[2021-12-12 11:55] LABS: Basophils Absolute Auto 0.1 K/mm3 (0.0-0.1); Basophils Percent Auto 0.6 % (0.2-1.2); Eosinophils Absolute Auto 0.2 K/mm3 (0-0.3); Eosinophils Percent Auto 1.4 % (0-4.4); Hematocrit 37.5 % (37.0-47.0); Hemoglobin 12.7 g/dL (12.0-15.0); Immature Granulocyte Absolute 0.07 K/mm3 (0.00-0.031); Immature Granulocyte Percent A 0.5 % (0-0.5); Lymphocytes Percent Auto 46.4 % (18.3-44.2); Mean Corpuscular HGB Conc 33.9 g/dl (32-36); Mean Corpuscular Hemoglobin 30.4 pg (26-34); Mean Corpuscular Volume 89.7 fl (80-100); Mean Platelet Volume 9.1 fl (7.4-10.4); Monocytes Percent Auto 6.6 % (2.6-8.5); Neutrophils Absolute Auto 6.5 K/mm3 (1.3-6.7); Neutrophils Percent Auto 44.5 % (45.5-73.1); Platelet Count Result 232 k/mm3 (150-375); Red Blood Count 4.18 M/mm3 (4.2-5.4); Red Cell Distribution Width 16.2 % (11.5-14.5); White Blood Count 14.6 K/mm3 (4.5-10.0)
[2021-12-12 12:18] LABS: Alanine Aminotransferase 20 U/L (6-35); Albumin Level 4.7 g/dL (3.5-5.1); Alkaline Phosphatase 64 U/L (38-126); Anion Gap 9 mmol/L (8-16); Aspartate Amino Transferase 33 U/L (14-36); Bilirubin,Total 0.5 mg/dL (0.2-1.3); Blood Urea Nitrogen 18 mg/dL (7-17); Calcium 9.4 mg/dL (8.4-10.2); Carbon Dioxide 25 mmol/L (22-30); Chloride 106 mmol/L (98-107); Estimated Glomerular Filt Rate > 60; Glucose 101 mg/dL (65-110); Lactate Dehydrogenase 182 U/L (120-246); Sodium 140 mmol/L (137-145)
== END 2021-12-12 11:07 | disposition home or self-care (01) ==
PROVIDERS: PCP Internal Medicine; Visit Provider Internal Medicine Hematology & Oncology
DX: C91.10 Chronic lymphocytic leukemia of B-cell type not having achieved remission (principal)
CPT/HCPCS: 36415; 80053; 83615; 85025

== ENCOUNTER 2022-08-12 09:07 | Outpatient (CLI) | payer MEDICARE, OTHER, SELFPAY ==
[2022-08-12 09:46] LABS: Basophils Absolute Auto 0.1 K/mm3 (0.0-0.1); Basophils Percent Auto 0.6 % (0.2-1.2); Eosinophils Absolute Auto 0.3 K/mm3 (0-0.3); Eosinophils Percent Auto 2.1 % (0-4.4); Hematocrit 38.3 % (37.0-47.0); Hemoglobin 12.8 g/dL (12.0-15.0); Immature Granulocyte Absolute 0.08 K/mm3 (0.00-0.031); Immature Granulocyte Percent A 0.6 % (0-0.5); Lymphocytes Absolute Auto 8.42 K/mm3 (0.9-3.2); Lymphocytes Percent Auto 58.1 % (18.3-44.2); Mean Corpuscular HGB Conc 33.4 g/dl (32-36); Mean Corpuscular Hemoglobin 31.1 pg (26-34); Mean Platelet Volume 8.8 fl (7.4-10.4); Monocytes Absolute Auto 0.8 K/mm3 (0.1-0.6); Monocytes Percent Auto 5.6 % (2.6-8.5); Neutrophils Absolute Auto 4.8 K/mm3 (1.3-6.7); Platelet Count Result 218 k/mm3 (150-375); Red Blood Count 4.12 M/mm3 (4.2-5.4); White Blood Count 14.5 K/mm3 (4.5-10.0)
[2022-08-12 09:52] LABS: Atypical Lymphocytes Present; Platelet Estimate Adequate (Adequate); Schistocytes None Seen (NORMAL)
[2022-08-12 10:32] LABS: Alanine Aminotransferase 24 U/L (6-35); Albumin Level 4.6 g/dL (3.5-5.1); Alkaline Phosphatase 52 U/L (38-126); Anion Gap 8 mmol/L (8-16); Aspartate Amino Transferase 25 U/L (14-36); Bilirubin,Total 0.6 mg/dL (0.2-1.3); Blood Urea Nitrogen 18 mg/dL (7-17); Carbon Dioxide 26 mmol/L (22-30); Chloride 105 mmol/L (98-107); Estimated Glomerular Filt Rate > 60; Glucose 166 mg/dL (65-110); Lactate Dehydrogenase 176 U/L (120-246); Potassium 4.3 mmol/L (3.4-5.0); Sodium 139 mmol/L (137-145)
== END 2022-08-12 09:08 | disposition home or self-care (01) ==
LOC: ANHLAB 09:09
PROVIDERS: PCP Family Medicine; Visit Provider Internal Medicine Hematology & Oncology
DX: C91.10 Chronic lymphocytic leukemia of B-cell type not having achieved remission (principal)
CPT/HCPCS: 36415; 80053; 83615; 85025

== ENCOUNTER 2022-09-13 10:31 | Emergency (ER) | payer MEDICARE, OTHER, SELFPAY ==
--- NOTE | 2022-09-13 10:34 | ED.BACK ---
HPI - Back Pain/Injury General Chief Complaint: Extremity Problem,Nontraumatic Stated Complaint: Right Back Shoulder Pain Time Seen by Provider: 09/13/22 10:33 Source: patient Mode of arrival: ambulatory Limitations: no limitations History of Present Illness HPI Narrative: Jerica is an 82-year-old female patient presenting to the clinic today with complaints of right back/shoulder pain x2 weeks. She reports pain started when she was reaching for can in 1 of her cabinets and developed pain in the right side of her back. She reports that that pain is radiating up into her neck. Has been seeing the chiropractor and he feels as though she is having a muscle strain and has been seeing her Thursday, Thursday, and Fridays. She is requesting a muscle relaxer today in the clinic. Patient has been taking ibuprofen with moderate pain relief. Rates pain currently a 07/14. Related Data Home Medications Medication Instructions Recorded Confirmed cetirizine 10 mg tablet (Zyrtec) 10 mg PO DAILY PRN Allergy Symptoms 09/21/20 09/13/22 Allergies Allergy/AdvReac Type Severity Reaction Status Date / Time adhesive Allergy Mild SKIN Verified 09/13/22 10:45 IRRITATION Sulfa (Sulfonamide Allergy Mild Skin Verified 09/13/22 10:45 Antibiotics) Reaction Review of Systems Review of Systems: Pertinent positives per HPI. Patient denies any fever, chills, rash, headache, visual changes, dizziness, cough, runny nose, sore throat, shortness of breath, chest pain, palpitations, nausea, vomiting, diarrhea, constipation, abdominal pain, or any urinary issues. PMFSH Past Medical History Medical History Acute arthritis Anxiety Cataracts, bilateral Colon polyp COVID-19 Duodenal ulcer High cholesterol Hypertension Obesity, unspecified Painful joint Post-menopausal Rectal polyp Skin cancer (melanoma) Type 2 diabetes mellitus without complication, without long-term current use of insulin Vertigo Surgical History Surgical History H/O colonoscopy with polypectomy History of bladder repair surgery History of cholecystectomy History of lumpectomy RT breast History of shoulder surgery RT History of thyroidectomy History of total knee arthroplasty LT History of tubal ligation S/P total knee arthroplasty right total knee on 10/10/2020 Family History Family History Mother Family history of Alzheimer's disease Father Family history of primary malignant neoplasm of liver Family history of hepatitis, Onset Age: 94 Social History Social History Social History: the patient is and lives with her . The patient desires to have her as a durable power bankruptcy attorney for healthcare. The patient desires to be a full code. The patient has 2 children a son and a daughter. The patient is retired. She is a former smoker. The patient does not use any alcohol or illicit drugs. Smoking packs per day: 1 Smoking cigarettes per day: 20.0 Years smoked: 12 Smoking pack-years: 12.00 Tobacco type: cigarettes Second hand tobacco smoke exposure: No Smoking end date: 04/06/84 Additional smoking assessment comments: DENIES ANY FORM OF TOBACCO USE Alcohol intake: current Drinks per week: 2 Substance use: never Substance use type: does not use Living arrangements: with family Occupation/Education: retired Gender identity (if verbalized by the patient): Female Sexual Orientation (if Verbalized by the Patient): Straight or Heterosexual Spiritual care concerns: No Comments At the time of my signature, I reviewed and agree with the nursing past medical, surgical, social, and family history. There is no relevant family history pertinent to the patient
[2022-09-13 10:43] VITALS: BP 154/76; PULSE 81; RESP 12; TEMP 36.7; O2SAT 96
== END 2022-09-13 10:55 | disposition home or self-care (01) ==
PROVIDERS: Emergency Provider Nurse Practitioner Family; PCP Family Medicine
DX: S46.811A Strain of other muscles, fascia and tendons at shoulder and upper arm level, right arm, initial encounter (principal); X50.0XXA Overexertion from strenuous movement or load, initial encounter; M19.90 Unspecified osteoarthritis, unspecified site; E78.00 Pure hypercholesterolemia, unspecified; I10 Essential (primary) hypertension; E11.9 Type 2 diabetes mellitus without complications; H26.9 Unspecified cataract; Z86.16 Personal history of COVID-19; E66.9 Obesity, unspecified; Z68.32 Body mass index [BMI] 32.0-32.9, adult; Z85.820 Personal history of malignant melanoma of skin
CPT/HCPCS: 99213; G0463

== ENCOUNTER 2023-08-13 08:14 | Outpatient (CLI) | payer OTHER, SELFPAY ==
[2023-08-13 08:33] LABS: Basophils Absolute Auto 0.1 K/mm3 (0.0-0.1); Basophils Percent Auto 0.4 % (0.2-1.2); Eosinophils Absolute Auto 0.3 K/mm3 (0-0.3); Eosinophils Percent Auto 1.8 % (0-4.4); Hematocrit 38.5 % (37.0-47.0); Hemoglobin 12.9 g/dL (12.0-15.0); Immature Granulocyte Absolute 0.06 K/mm3 (0.00-0.031); Immature Granulocyte Percent A 0.4 % (0-0.5); Lymphocytes Absolute Auto 9.29 K/mm3 (0.9-3.2); Mean Corpuscular HGB Conc 33.5 g/dl (32-36); Mean Corpuscular Hemoglobin 30.7 pg (26-34); Mean Corpuscular Volume 91.7 fl (80-100); Mean Platelet Volume 9.1 fl (7.4-10.4); Monocytes Absolute Auto 0.9 K/mm3 (0.1-0.6); Monocytes Percent Auto 5.4 % (2.6-8.5); Neutrophils Absolute Auto 6.3 K/mm3 (1.3-6.7); Platelet Count Result 209 k/mm3 (150-375); Red Cell Distribution Width 16.7 % (11.5-14.5); White Blood Count 16.9 K/mm3 (4.5-10.0)
[2023-08-13 10:35] LABS: Alanine Aminotransferase 19 U/L (6-35); Albumin Level 4.7 g/dL (3.5-5.1); Alkaline Phosphatase 58 U/L (38-126); Anion Gap 8 mmol/L (4-12); Aspartate Amino Transferase 25 U/L (14-36); Bilirubin,Total 0.8 mg/dL (0.2-1.3); Blood Urea Nitrogen 21 mg/dL (7-17); Calcium 9.7 mg/dL (8.4-10.2); Carbon Dioxide 24 mmol/L (22-30); Chloride 108 mmol/L (98-107); Estimated Glomerular Filt Rate > 60; Glucose 113 mg/dL (65-110); Lactate Dehydrogenase 203 U/L (120-246); Potassium 4.2 mmol/L (3.4-5.0); Sodium 140 mmol/L (137-145)
== END 2023-08-13 08:15 | disposition home or self-care (01) ==
LOC: ANHLAB 08:17
PROVIDERS: PCP Family Medicine; Visit Provider Internal Medicine Hematology & Oncology
DX: C91.10 Chronic lymphocytic leukemia of B-cell type not having achieved remission (principal)
CPT/HCPCS: 36415; 80053; 83615; 85025

== ENCOUNTER 2024-07-13 10:03 | Outpatient (CLI) | payer MEDICARE, SELFPAY ==
--- NOTE | ~2024-07-13 | MR_ITS ---
MRI of the lumbar spine Clinical History: Compression fracture Technique: Axial T2-weighted images, and sagittal T1-weighted, T2-weighted, and and T2 fat-sat images were acquired. Findings: There is acute moderate compression fracture of L2, with moderate loss of height, T1 hypoin tense fracture line, and marrow edema. No other fracture evident. No subluxation evident. At L1-L2, there is moderate degenerative change. There is mild disc bulge and moderate to advanced fa cet arthropathy. There is mild central canal stenosis. There is minimal bilateral neural foraminal na rrowing. At L2-L3, there is severe degenerative disc narrowing. Disc bulge/protrusion and advanced facet arthr opathy contribute to moderate to severe spinal canal stenosis/thecal sac compression. There is modera te to advanced bilateral neural foraminal narrowing. At L3-L4, there is advanced degenerative disc narrowing. Disc bulge and severe facet arthropathy resu lt in severe spinal canal stenosis/thecal sac compression. There is mild bilateral neural foraminal n arrowing. At L4-L5, there is mild disc bulge and severe facet arthropathy. There is severe spinal canal stenosi s/thecal sac compression, and moderate to advanced bilateral neural foraminal narrowing. At L5-S1, there is mild disc bulge and severe facet arthropathy. There is minimal central canal steno sis. There is severe bilateral neural foraminal narrowing, left worse than right. Paravertebral soft tissues are unremarkable. Impression: Acute compression fracture of L2, as detailed above. Severe degenerative spondylosis throughout the lumbar spine, as above. Reviewed, dictated and finalized at [facility]. Impression: Acute compression fracture of L2, as detailed above. Severe degenerative spondylosis throughout the lumbar spine, as above.
== END 2024-07-13 10:04 | disposition home or self-care (01) ==
PROVIDERS: PCP Family Medicine; Visit Provider Family Medicine
DX: Z98.890 Other specified postprocedural states (principal); S32.020A Wedge compression fracture of second lumbar vertebra, initial encounter for closed fracture; X58.XXXA Exposure to other specified factors, initial encounter; M47.896 Other spondylosis, lumbar region
CPT/HCPCS: 72148

== ENCOUNTER 2024-09-26 10:27 | Outpatient (CLI) | payer MEDICARE, SELFPAY ==
[2024-09-26 10:51] LABS: Basophils Absolute Auto 0.1 K/mm3 (0.0-0.1); Basophils Percent Auto 0.5 % (0.2-1.2); Eosinophils Absolute Auto 0.2 K/mm3 (0-0.3); Eosinophils Percent Auto 1.8 % (0-4.4); Hematocrit 35.7 % (37.0-47.0); Hemoglobin 11.8 g/dL (12.0-15.0); Immature Granulocyte Absolute 0.07 K/mm3 (0.00-0.031); Immature Granulocyte Percent A 0.5 % (0-0.5); Lymphocytes Absolute Auto 5.09 K/mm3 (0.9-3.2); Lymphocytes Percent Auto 38.9 % (18.3-44.2); Mean Corpuscular HGB Conc 33.1 g/dl (32-36); Mean Corpuscular Hemoglobin 31.6 pg (26-34); Mean Corpuscular Volume 95.7 fl (80-100); Monocytes Absolute Auto 1.2 K/mm3 (0.1-0.6); Monocytes Percent Auto 8.9 % (2.6-8.5); Neutrophils Absolute Auto 6.5 K/mm3 (1.3-6.7); Neutrophils Percent Auto 49.4 % (45.5-73.1); Platelet Count Result 183 k/mm3 (150-375); Red Blood Count 3.73 M/mm3 (4.2-5.4); Red Cell Distribution Width 16.8 % (11.5-14.5); White Blood Count 13.1 K/mm3 (4.5-10.0)
[2024-09-26 11:47] LABS: Alanine Aminotransferase 21 U/L (6-35); Albumin Level 4.1 g/dL (3.5-5.1); Alkaline Phosphatase 57 U/L (38-126); Anion Gap 9 mmol/L (4-12); Aspartate Amino Transferase 53 U/L (14-36); Bilirubin,Total 0.5 mg/dL (0.2-1.3); Blood Urea Nitrogen 19 mg/dL (7-17); Calcium 9.3 mg/dL (8.4-10.2); Carbon Dioxide 23 mmol/L (22-30); Chloride 107 mmol/L (98-107); Estimated Glomerular Filt Rate > 60; Glucose 114 mg/dL (65-110); Potassium 4.1 mmol/L (3.4-5.0); Sodium 139 mmol/L (137-145); Total Protein 7.2 g/dL (6.3-8.2)
== END 2024-09-26 10:28 | disposition home or self-care (01) ==
LOC: ANHLAB 10:28
PROVIDERS: PCP Family Medicine; Visit Provider Internal Medicine Hematology & Oncology
DX: C91.10 Chronic lymphocytic leukemia of B-cell type not having achieved remission (principal)
CPT/HCPCS: 36415; 80053; 85025